=== PATIENT | male | born 1945 | race Caucasian/White ===

== ENCOUNTER 2016-12-26 04:35 | Emergency (ER) | payer MEDICARE, OTHER ==
[2016-12-26] MEDS ORDERED: SODIUM CHLORIDE 0.9% 1,000 ML IV STA ×3 (04:49→06:57)
--- NOTE | 2016-12-26 05:17 | ED ---
Recheck HPI - General Chief Complaint: Recheck/Abnormal Lab/Rx Stated Complaint: Tremors Time Seen by Provider: 12/26/16 04:35 Source: patient, EMS, RN notes reviewed Mode of arrival: EMS Limitations: no limitations - History of Present Illness Initial Comments: This is a 71-year-old male with a history of Parkinson's disease who is brought in for evaluation for some increased shaking. He also states she's had increased muscle twitching is some discomfort over last several days. Also has had edema to his lower extremities no complaints of shortness of breath or does have a cough. - Related Data Home Medications Medication Instructions Recorded Confirmed Divalproex [Depakote] 250 mg PO BID 01/03/14 10/19/15 Tamsulosin HCl 0.4 mg PO BID 09/24/14 10/19/15 Primidone [Mysoline] 50 mg PO BID 12/06/14 10/19/15 Simvastatin [Zocor] 20 mg PO HS 12/06/14 10/19/15 Bisacodyl [Dulcolax] 10 mg RECTAL DAILY PRN 07/14/15 10/19/15 Cholecalciferol [Vitamin D3] 2,000 unit PO DAILY 07/14/15 10/19/15 Ensure Complete 1 can PO BID-W/MEALS 07/14/15 10/19/15 Magnesium Hydroxide [Milk of 30 ml PO DAILY PRN 07/14/15 10/19/15 Magnesia] Na Phos,M-B/Na Phos,Di-Ba [Fleet 133 ml RECTAL DAILY PRN 07/14/15 10/19/15 Adult] Polyethylene Glycol 3350 [Miralax] 17 gm PO BID 07/14/15 10/19/15 Psyllium Husk 100% [Metamucil 6 gm PO DAILY 07/14/15 10/19/15 Packet] Triamcinolone Acetonide [Nasacort] 1 spray EA NOSTRIL QAM 07/14/15 10/19/15 hydrOXYzine PAMOATE [Vistaril] 50 mg PO HS 07/14/15 10/19/15 Amantadine HCl [Symmetrel] 100 mg PO BID 10/19/15 10/19/15 Ammonium Lactate Lotion 1 applic TOPICAL DAILY 10/19/15 10/19/15 [Lac-Hydrin 12% Lotion] Carbidopa-Levodopa 25-100 mg 1 tab PO QID 10/19/15 10/19/15 [Sinemet 25-100 mg] Menthol/Zinc Oxide [Calmoseptine 1 applic TOPICAL TID 10/19/15 10/19/15 Ointment] Multivitamin [Men's Multi-Vitamin] 1 tab PO DAILY 10/19/15 10/19/15 QUEtiapine [SEROquel] 150 mg PO HS 10/19/15 10/19/15 Previous Rx's Medication Instructions Recorded Aspirin 81 mg PO DAILY chew 10/24/15 HYDROcodone/APAP 10-325MG [[place] 1 - 2 each PO Q6H PRN #90 tab 10/24/15 10-325] LORazepam [Ativan] 0.5 mg PO Q6H PRN #14 tab 10/24/15 Metoprolol Tartrate [Lopressor] 12.5 mg PO BID tab 10/24/15 Temazepam [Restoril] 15 mg PO HS PRN #14 cap 10/24/15 Warfarin [Coumadin] 2.5 mg PO DAILY #28 tab 10/24/15 Magnesium 200 mg PO DAILY #14 tablet 12/26/16 Allergies Allergy/AdvReac Type Severity Reaction Status Date / Time No Known Allergies Allergy Verified 12/26/16 04:38 Review of Systems ROS Statement: Those systems with pertinent positive or pertinent negative responses have been documented in the HPI. ROS Other: All systems not noted in ROS Statement are negative. Past Medical History Past Medical History: Coronary Artery Disease (CAD), CVA/TIA, Hyperlipidemia, Hypertension, Myocardial Infarction ([place]), Osteoarthritis (OA), Prostate Disorder , Seizure Disorder Additional Past Medical History / Comment(s): [place] 2009. PARKINSON'S, MUSCLE WEAKNESS. EPILEPSY. DYSPHAGIA. PATIENT ALERT, WALKS W/ WHEELED WALKER OR USES W/C. Last Myocardial Infarction Date:: 2009 History of Any Multi-Drug Resistant Organisms: None Reported Past Surgical History: Cholecystectomy, Heart Catheterization With Stent Additional Past Surgical History / Comment(s): RT INGUINAL HERNIA REPAIR Past Anesthesia/Blood Transfusion Reactions: No Reported Reaction Date of Last Stent Placement:: 2007 Past Psychological History: Anxiety, Bipolar Smoking Status: Former smoker Past Alcohol Use History: None Reported Past Drug Use History: None Reported - Past Family History Father Additional Family Medical History / Comment(s): BRIGHTS DISEASE Mother Family Medical History: CVA/TIA General Exam - General Exam Comments Initial Comments: This is a well-developed well-nourished awake alert male he does demonstrate generalized shaking consistent with Parkinson's disease Limitations: no limitations General appearance: alert, in no apparent distress Head exam: Present: atraumatic, normocephalic, normal inspection Eye exam: Present: normal appearance, PERRL, EOMI. Absent: scleral icterus, conjunctival injection, periorbital swelling ENT exam: Present: mucous membranes dry Neck exam: Present: normal inspection. Absent: tenderness, meningismus, lymphadenopathy Respiratory exam: Present: decreased breath sounds, other (Decreased Some Crackles [place] in the Left Base). Absent: respiratory distress, wheezes, rales , rhonchi, stridor Cardiovascular Exam: Present: regular rate, normal rhythm, normal heart sounds. Absent: systolic murmur, diastolic murmur, rubs, gallop, clicks GI/Abdominal exam: Present: soft, normal bowel sounds. Absent: distended, tenderness, guarding, rebound, rigid Extremities exam: Present: normal inspection, full ROM, normal capillary refill , pedal edema (Pila edema more so on the right than left lower extremity). Absent: tenderness, joint swelling, calf tenderness Back exam: Present: normal inspection Neurological exam: Present: alert, oriented X3, CN II-XII intact Psychiatric exam: Present: normal affect, normal mood Skin exam: Present: warm, dry, intact, normal color. Absent: rash Course Vital Signs 12/26/16 12/26/16 04:38 06:25 Temperature 98.1 F 98.7 F Pulse Rate 74 94 Respiratory 16 16 Rate Blood Pressure 143/64 125/67 O2 Sat by Pulse 97 97 Oximetry Medical Decision Making - Medical Decision Making The patient is feeling improved he will be hydrated with IV magnesium given additionally. History has improved greatly. He will be discharged after the IV medication - Lab Data Result diagrams: 12/26/16 05:30 12/26/16 05:30 Lab Results 12/26/16 12/26/16 12/26/16 Range/Units 05:30 05:30 05:30 WBC 6.2 (3.8-10.6) k/uL RBC 3.94 L (4.30-5.90) m/uL Hgb 12.9 L (13.0-17.5) gm/dL Hct 38.4 L (39.0-53.0) % MCV 97.5 (80.0-100.0) fL MCH 32.9 (25.0-35.0) pg MCHC 33.7 (31.0-37.0) g/dL RDW 13.7 (11.5-15.5) % Plt Count 214 (150-450) k/uL Neutrophils % 74 % Lymphocytes % 16 % Monocytes % 6 % Eosinophils % 3 % Basophils % 0 % Neutrophils # 4.5 (1.3-7.7) k/uL Lymphocytes # 1.0 (1.0-4.8) k/uL Monocytes # 0.3 (0-1.0) k/uL Eosinophils # 0.2 (0-0.7) k/uL Basophils # 0.0 (0-0.2) k/uL Sodium (137-145) mmol/L Potassium (3.5-5.1) mmol/L Chloride (98-107) mmol/L Carbon Dioxide (22-30) mmol/L Anion Gap mmol/L BUN (9-20) mg/dL Creatinine (0.66-1.25) mg/dL Est GFR (MDRD) Af Amer (>60 ml/min/1.73 sqM) Est GFR (MDRD) Non-Af (>60 ml/min/1.73 sqM) Glucose (74-99) mg/dL Calcium (8.4-10.2) mg/dL Magnesium (1.6-2.3) mg/dL Total Bilirubin (0.2-1.3) mg/dL AST (17-59) U/L ALT (21-72) U/L Alkaline Phosphatase (38-126) U/L Total Creatine Kinase 158 (55-170) U/L CK-MB (CK-2) 2.8 H* (0.0-2.4) ng/mL CK-MB (CK-2) Rel Index 1.8 NT-Pro-B Natriuret Pep 171 pg/mL Total Protein (6.3-8.2) g/dL Albumin (3.5-5.0) g/dL Urine Color Urine Appearance (Clear) Urine pH (5.0-8.0) Ur Specific [place] (1.001-1.035) Urine Protein (Negative) Urine Glucose (UA) (Negative) Urine Ketones (Negative) Urine Blood (Negative) Urine Nitrite (Negative) Urine Bilirubin (Negative) Urine Urobilinogen (<2.0) mg/dL Ur Leukocyte Esterase (Negative) 12/26/16 12/26/16 Range/Units 05:30 05:30 WBC (3.8-10.6) k/uL RBC (4.30-5.90) m/uL Hgb (13.0-17.5) gm/dL Hct (39.0-53.0) % MCV (80.0-100.0) fL MCH (25.0-35.0) pg MCHC (31.0-37.0) g/dL RDW (11.5-15.5) % Plt Count (150-450) k/uL Neutrophils % % Lymphocytes % % Monocytes % % Eosinophils % % Basophils % % Neutrophils # (1.3-7.7) k/uL Lymphocytes # (1.0-4.8) k/uL Monocytes # (0-1.0) k/uL Eosinophils # (0-0.7) k/uL Basophils # (0-0.2) k/uL Sodium 142 (137-145) mmol/L Potassium 4.2 (3.5-5.1) mmol/L Chloride 102 (98-107) mmol/L Carbon Dioxide 31 H (22-30) mmol/L Anion Gap 9 mmol/L BUN 40 H (9-20) mg/dL Creatinine 0.84 (0.66-1.25) mg/dL Est GFR (MDRD) Af Amer >60 (>60 ml/min/1.73 sqM) Est GFR (MDRD) Non-Af >60 (>60 ml/min/1.73 sqM) Glucose 88 (74-99) mg/dL Calcium 9.1 (8.4-10.2) mg/dL Magnesium 1.7 (1.6-2.3) mg/dL Total Bilirubin 0.9 (0.2-1.3) mg/dL AST 30 (17-59) U/L ALT 25 (21-72) U/L Alkaline Phosphatase 73 (38-126) U/L Total Creatine Kinase (55-170) U/L CK-MB (CK-2) (0.0-2.4) ng/mL CK-MB (CK-2) Rel Index NT-Pro-B Natriuret Pep pg/mL Total Protein 6.7 (6.3-8.2) g/dL Albumin 3.9 (3.5-5.0) g/dL Urine Color Yellow Urine Appearance Clear (Clear) Urine pH 7.0 (5.0-8.0) Ur Specific [place] 1.023 (1.001-1.035) Urine Protein Trace H (Negative) Urine Glucose (UA) Negative (Negative) Urine Ketones Trace H (Negative) Urine Blood Negative (Negative) Urine Nitrite Negative (Negative) Urine Bilirubin Negative (Negative) Urine Urobilinogen 2.0 (<2.0) mg/dL Ur Leukocyte Esterase Negative (Negative) - Radiology Data Radiology results: report reviewed (I did review the imaging and reports no acute findings.), image reviewed Disposition Clinical Impression: Dehydration, Hypomagnesemia, Tremor Disposition: HOME SELF-CARE Condition: Good Instructions: Dehydration (ED), Hypomagnesemia (ED) Prescriptions: Magnesium 200 mg PO DAILY #14 tablet Referrals: Taco Soto MD [Primary Care Provider] - 1-2 days
[2016-12-26 05:48] LABS: Appearance,Urine Clear (Clear); Basophils % (A) 0 %; Bilirubin,Urine Negative (Negative); Eosinophils # (A) 0.2 k/uL (0-0.7); Eosinophils % (A) 3 %; Glucose,Urine (UA) Negative (Negative); HCT 38.4 % (39.0-53.0); HDW 2.44; HGB 12.9 gm/dL (13.0-17.5); Ketones,Urine Trace (Negative); Leukocyte Esterase,Urine Negative (Negative); Luc # (Auto) 0.06; Luc % (Auto) 1; Lymphocytes % (A) 16 %; MCH 32.9 pg (25.0-35.0); MCHC 33.7 g/dL (31.0-37.0); MCV 97.5 fL (80.0-100.0); Mean Platelet Volume 8.2; Monocytes # (A) 0.3 k/uL (0-1.0); Monocytes % (A) 6 %; Neutrophils # (A) 4.5 k/uL (1.3-7.7); Neutrophils % (A) 74 %; Nitrite,Urine Negative (Negative); Protein,Urine Trace (Negative); RBC 3.94 m/uL (4.30-5.90); RDW 13.7 % (11.5-15.5); Specific Gravity,Urine 1.023 (1.001-1.035); UA Billing (MACRO vs. MICRO) CHEM; WBC 6.2 k/uL (3.8-10.6)
[2016-12-26 06:01] LABS: ALT 25 U/L (21-72); AST 30 U/L (17-59); Alkaline Phosphatase 73 U/L (38-126); Anion Gap 9 mmol/L; Blood Urea Nitrogen 40 mg/dL (9-20); Calcium 9.1 mg/dL (8.4-10.2); Carbon Dioxide 31 mmol/L (22-30); Chloride 102 mmol/L (98-107); Glucose 88 mg/dL (74-99); Magnesium 1.7 mg/dL (1.6-2.3); Non-African American GFR(MDRD) >60 (>60 ml/min/1.73 sqM); Potassium 4.2 mmol/L (3.5-5.1); Sodium 142 mmol/L (137-145); Total Bilirubin 0.9 mg/dL (0.2-1.3); Total Protein 6.7 g/dL (6.3-8.2)
[2016-12-26] MEDS ORDERED: LORazepam 2 MG/ML SYRINGE IV STA (06:19)
[2016-12-26 06:26] VITALS: TEMP 98.7
[2016-12-26 06:35] LABS: Creatine Kinase MB 2.8 ng/mL (0.0-2.4)
[2016-12-26] MEDS ORDERED: MAGNESIUM SULFATE-D5W PMX 1 GM in DEXTROSE/WATER 1 100ML.BAG IVPB ONE (06:57)
--- NOTE | 2016-12-26 07:10 | XR ---
EXAM: XR Chest, 2 Views CLINICAL HISTORY: Cough. TECHNIQUE: Frontal and lateral views of the chest. COMPARISON: CXR dated 10/20/2015. FINDINGS: Lungs: No evidence of focal consolidation. No evidence of pulmonary edema. Pleural space: No pleural effusion. No pneumothorax. Heart: Cardiac silhouette size within normal limits. Mediastinum: Unremarkable. Bones/joints: Osseous degenerative changes. No evidence of acute fracture. IMPRESSION: No radiographic evidence of acute cardiopulmonary process.
[2016-12-26 08:34] VITALS: BP 117/75; PULSE 89; RESP 18
== END 2016-12-26 09:33 | disposition home or self-care (01) ==
LOC: EC 04:35
DX: E86.0 Dehydration (principal); E83.42 Hypomagnesemia; R25.1 Tremor, unspecified; M62.838 Other muscle spasm; I25.10 Atherosclerotic heart disease of native coronary artery without angina pectoris; E78.5 Hyperlipidemia, unspecified; I10 Essential (primary) hypertension; I25.2 Old myocardial infarction; M19.90 Unspecified osteoarthritis, unspecified site; N42.9 Disorder of prostate, unspecified; G40.909 Epilepsy, unspecified, not intractable, without status epilepticus; G20 Parkinson's disease; F31.9 Bipolar disorder, unspecified; F41.9 Anxiety disorder, unspecified; Z87.891 Personal history of nicotine dependence; Z79.899 Other long term (current) drug therapy
CPT/HCPCS: 36415; 83880; 80053; 82550; 82553; 83735; 85025; 81003; 87040; 71020; 99284; 51702; 96365; 96375; 96361 ×3; J2060; J3475

== ENCOUNTER 2016-12-28 13:30 | Emergency (ER) | payer MEDICARE, OTHER ==
--- NOTE | 2016-12-28 14:08 | ED ---
General Adult HPI - General Chief complaint: Recheck/Abnormal Lab/Rx Stated complaint: Catheter Removal Time Seen by Provider: 12/28/16 13:57 Source: patient, RN notes reviewed Mode of arrival: wheelchair Limitations: no limitations - History of Present Illness Initial comments: 71-year-old male present emergency from for Rivers catheter removal. Patient states he placed a few days ago when his emergency department course was supposed to have it removed on Tuesday but states he did not come until today. Patient states is draining well he has no point complaints. Denies any fevers or chills patient offers no other complaints. - Related Data Home Medications Medication Instructions Recorded Confirmed Divalproex [Depakote] 250 mg PO BID 01/03/14 12/26/16 Tamsulosin HCl 0.4 mg PO BID 09/24/14 12/26/16 Primidone [Mysoline] 50 mg PO BID 12/06/14 12/26/16 Simvastatin [Zocor] 20 mg PO HS 12/06/14 12/26/16 Bisacodyl [Dulcolax] 10 mg RECTAL DAILY PRN 07/14/15 12/26/16 Cholecalciferol [Vitamin D3] 2,000 unit PO DAILY 07/14/15 12/26/16 Ensure Complete 1 can PO BID-W/MEALS 07/14/15 12/26/16 Magnesium Hydroxide [Milk of 30 ml PO DAILY PRN 07/14/15 12/26/16 Magnesia] Na Phos,M-B/Na Phos,Di-Ba [Fleet 133 ml RECTAL DAILY PRN 07/14/15 12/26/16 Adult] Polyethylene Glycol 3350 [Miralax] 17 gm PO BID 07/14/15 12/26/16 Psyllium Husk 100% [Metamucil 6 gm PO DAILY 07/14/15 12/26/16 Packet] Triamcinolone Acetonide [Nasacort] 1 spray EA NOSTRIL QAM 07/14/15 12/26/16 hydrOXYzine PAMOATE [Vistaril] 50 mg PO HS 07/14/15 12/26/16 Amantadine HCl [Symmetrel] 100 mg PO BID 10/19/15 12/26/16 Ammonium Lactate Lotion 1 applic TOPICAL DAILY 10/19/15 12/26/16 [Lac-Hydrin 12% Lotion] Carbidopa-Levodopa 25-100 mg 1 tab PO QID 10/19/15 12/26/16 [Sinemet 25-100 mg] Menthol/Zinc Oxide [Calmoseptine 1 applic TOPICAL TID 10/19/15 12/26/16 Ointment] Multivitamin [Men's Multi-Vitamin] 1 tab PO DAILY 10/19/15 12/26/16 QUEtiapine [SEROquel] 150 mg PO HS 10/19/15 12/26/16 Previous Rx's Medication Instructions Recorded Aspirin 81 mg PO DAILY chew 10/24/15 HYDROcodone/APAP 10-325MG [[place] 1 - 2 each PO Q6H PRN #90 tab 10/24/15 10-325] LORazepam [Ativan] 0.5 mg PO Q6H PRN #14 tab 10/24/15 Metoprolol Tartrate [Lopressor] 12.5 mg PO BID tab 10/24/15 Temazepam [Restoril] 15 mg PO HS PRN #14 cap 10/24/15 Warfarin [Coumadin] 2.5 mg PO DAILY #28 tab 10/24/15 Magnesium 200 mg PO DAILY #14 tablet 12/26/16 Allergies Allergy/AdvReac Type Severity Reaction Status Date / Time No Known Allergies Allergy Verified 12/28/16 13:55 Review of Systems ROS Statement: Those systems with pertinent positive or pertinent negative responses have been documented in the HPI. ROS Other: All systems not noted in ROS Statement are negative. Past Medical History Past Medical History: Coronary Artery Disease (CAD), CVA/TIA, Hyperlipidemia, Hypertension, Myocardial Infarction ([place]), Osteoarthritis (OA), Prostate Disorder , Seizure Disorder Additional Past Medical History / Comment(s): [place] 2009. PARKINSON'S, MUSCLE WEAKNESS. EPILEPSY. DYSPHAGIA. PATIENT ALERT, WALKS W/ WHEELED WALKER OR USES W/C. Last Myocardial Infarction Date:: 2009 History of Any Multi-Drug Resistant Organisms: None Reported Past Surgical History: Cholecystectomy, Heart Catheterization With Stent Additional Past Surgical History / Comment(s): RT INGUINAL HERNIA REPAIR Past Anesthesia/Blood Transfusion Reactions: No Reported Reaction Date of Last Stent Placement:: 2007 Past Psychological History: Anxiety, Bipolar Smoking Status: Former smoker Past Alcohol Use History: None Reported Past Drug Use History: None Reported - Past Family History Father Additional Family Medical History / Comment(s): BRIGHTS DISEASE Mother Family Medical History: CVA/TIA General Exam Limitations: no limitations General appearance: alert, in no apparent distress Neck exam: Present: normal inspection. Absent: tenderness, meningismus, lymphadenopathy Respiratory exam: Present: normal lung sounds bilaterally. Absent: respiratory distress, wheezes, rales, rhonchi, stridor Cardiovascular Exam: Present: regular rate, normal rhythm, normal heart sounds. Absent: systolic murmur, diastolic murmur, rubs, gallop, clicks GI/Abdominal exam: Present: soft, normal bowel sounds. Absent: distended, tenderness, guarding, rebound, rigid Course Vital Signs 12/28/16 13:53 Temperature 97.1 F L Pulse Rate 66 Respiratory 18 Rate Blood Pressure 116/77 O2 Sat by Pulse 98 Oximetry Medical Decision Making - Medical Decision Making 71-year-old male presented for Rivers catheter removal. This was removed by the nurse. Patient tolerated well. We did discuss return parameters and possibility of urinary retention after Rivers catheter is removed. He does understand and return if he is unable to urinate. Disposition Clinical Impression: Encounter for Rivers catheter removal Disposition: HOME SELF-CARE Condition: Stable Instructions: Rivers Catheter Placement and Care (ED) Additional Instructions: Please return to the Emergency Department if symptoms worsen or any other concerns. Referrals: Taco Soto MD [Primary Care Provider] - 1-2 days Time of Disposition: 14:07
[2016-12-28 14:14] VITALS: BP 134/64; PULSE 61; RESP 16; TEMP 97.2
== END 2016-12-28 14:29 | disposition home or self-care (01) ==
LOC: EC 13:30
DX: Z43.8 Encounter for attention to other artificial openings (principal); I25.10 Atherosclerotic heart disease of native coronary artery without angina pectoris; E78.5 Hyperlipidemia, unspecified; I10 Essential (primary) hypertension; I25.2 Old myocardial infarction; G40.909 Epilepsy, unspecified, not intractable, without status epilepticus; M19.90 Unspecified osteoarthritis, unspecified site; F41.9 Anxiety disorder, unspecified; Z86.73 Personal history of transient ischemic attack (TIA), and cerebral infarction without residual deficits; Z79.899 Other long term (current) drug therapy; Z87.891 Personal history of nicotine dependence
CPT/HCPCS: 99283

== ENCOUNTER → 2016-12-28 | Outpatient (CLI) | payer MEDICARE, OTHER ==
--- NOTE | 2016-12-28 14:02 | US ---
EXAMINATION TYPE: US venous doppler duplex LE RT DATE OF EXAM: 12/28/2016 12:35 PM COMPARISON: NONE CLINICAL HISTORY: Rt Lower Ext, R22.41 swelling. Pt has urinary catheter permanent SIDE PERFORMED: rt TECHNIQUE: The lower extremity deep venous system is examined utilizing real time linear array sonog roland with graded compression, doppler sonography and color-flow sonography. VESSELS IMAGED: External Iliac Vein (EIV) Common Femoral Vein Deep Femoral Vein Greater Saphenous Vein * Femoral Vein Popliteal Vein Small Saphenous Vein * Proximal Calf Veins (* superficial vessels) Right Leg: Negative for acute DVT Grayscale, color doppler, spectral doppler imaging performed of the deep veins of the right lower ex tremity. There is normal flow, compressibility, vascular waveforms of the right lower extremity. IMPRESSION: No ultrasound evidence for acute DVT in the right lower extremity.
== END | disposition home or self-care (01) ==
LOC: RADUSWWP 12:12
PROVIDERS: ATTEND Internal Medicine
DX: R22.41 Localized swelling, mass and lump, right lower limb (principal)

== ENCOUNTER → 2016-12-28 | Outpatient (CLI) | payer MEDICARE, OTHER ==
[2016-12-28 13:40] LABS: Basophils % (A) 0 %; CH 33.1; CHCM 33.9; Eosinophils # (A) 0.2 k/uL (0-0.7); Eosinophils % (A) 4 %; HCT 36.8 % (39.0-53.0); HDW 2.45; Luc # (Auto) 0.07; Luc % (Auto) 2; Lymphocytes # (A) 0.9 k/uL (1.0-4.8); Lymphocytes % (A) 22 %; MCHC 32.6 g/dL (31.0-37.0); MCV 98.3 fL (80.0-100.0); Mean Platelet Volume 8.7; Monocytes # (A) 0.3 k/uL (0-1.0); Monocytes % (A) 7 %; Neutrophils # (A) 2.5 k/uL (1.3-7.7); Neutrophils % (A) 65 %; RBC 3.75 m/uL (4.30-5.90); RDW 13.4 % (11.5-15.5); WBC 3.8 k/uL (3.8-10.6)
[2016-12-28 14:01] LABS: ALT 12 U/L (21-72); AST 19 U/L (17-59); Alkaline Phosphatase 63 U/L (38-126); Anion Gap 8 mmol/L; Blood Urea Nitrogen 19 mg/dL (9-20); Calcium 8.6 mg/dL (8.4-10.2); Carbon Dioxide 31 mmol/L (22-30); Chloride 98 mmol/L (98-107); Cholesterol 155 mg/dL (<200); Glucose 85 mg/dL (74-99); HDL Cholesterol 44 mg/dL (40-60); Non-African American GFR(MDRD) >60 (>60 ml/min/1.73 sqM); Potassium 3.9 mmol/L (3.5-5.1); Sodium 137 mmol/L (137-145); Total Bilirubin 0.5 mg/dL (0.2-1.3); Total Protein 6.1 g/dL (6.3-8.2)
[2016-12-28 14:48] LABS: Hepatitis C Virus IgG Ab Negative (Negative); Hepatitis C Virus IgG Index 0.05
== END ==
LOC: LABWHC1 13:19
PROVIDERS: ATTEND Internal Medicine
DX: E55.9 Vitamin D deficiency, unspecified (principal); I25.9 Chronic ischemic heart disease, unspecified; Z13.9 Encounter for screening, unspecified
CPT/HCPCS: 36415; 80053; 80061; 82306; 85025; 86803

== ENCOUNTER 2016-12-30 20:08 | Observation (INO) | payer MEDICARE, OTHER ==
[2016-12-30 20:41] LABS: Basophils % (A) 0 %; CH 33.5; CHCM 35.2; Eosinophils # (A) 0.1 k/uL (0-0.7); Eosinophils % (A) 2 %; HCT 36.7 % (39.0-53.0); HGB 12.6 gm/dL (13.0-17.5); Luc # (Auto) 0.06; Luc % (Auto) 1; Lymphocytes # (A) 0.8 k/uL (1.0-4.8); Lymphocytes % (A) 17 %; MCH 32.9 pg (25.0-35.0); MCHC 34.4 g/dL (31.0-37.0); MCV 95.6 fL (80.0-100.0); Mean Platelet Volume 8.2; Monocytes # (A) 0.3 k/uL (0-1.0); Monocytes % (A) 6 %; Neutrophils # (A) 3.5 k/uL (1.3-7.7); Neutrophils % (A) 74 %; RBC 3.84 m/uL (4.30-5.90); RDW 13.8 % (11.5-15.5); WBC 4.8 k/uL (3.8-10.6); WBC (Perox) 5.24
[2016-12-30 20:50] LABS: ALT 18 U/L (21-72); AST 20 U/L (17-59); Alkaline Phosphatase 65 U/L (38-126); Anion Gap 11 mmol/L; Blood Urea Nitrogen 14 mg/dL (9-20); Carbon Dioxide 28 mmol/L (22-30); Chloride 96 mmol/L (98-107); Glucose 81 mg/dL (74-99); Magnesium 1.5 mg/dL (1.6-2.3); Non-African American GFR(MDRD) >60 (>60 ml/min/1.73 sqM); Potassium 3.7 mmol/L (3.5-5.1); Sodium 135 mmol/L (137-145); Total Bilirubin 0.4 mg/dL (0.2-1.3); Total Protein 6.6 g/dL (6.3-8.2)
[2016-12-30 20:53] LABS: Partial Thromboplastin Time 22.4 sec (22.0-30.0); Prothrombin Time 10.3 sec (9.0-12.0)
--- NOTE | 2016-12-30 21:14 | XR ---
EXAMINATION TYPE: XR chest 1V portable DATE OF EXAM: 12/30/2016 COMPARISON: 12/26/2016 HISTORY: Weakness TECHNIQUE: Single frontal view of the chest is obtained. FINDINGS: There is no focal air space opacity, pleural effusion, or pneumothorax seen. The cardiac silhouette size is within normal limits. The osseous structures are intact. IMPRESSION: No acute process.
[2016-12-30 23:12] LABS: Amorphous Sediment,Urine Rare /hpf; Appearance,Urine Cloudy (Clear); Bacteria,Urine Occasional /hpf; Bilirubin,Urine Negative (Negative); Glucose,Urine (UA) Negative (Negative); Ketones,Urine Negative (Negative); Leukocyte Esterase,Urine Negative (Negative); Nitrite,Urine Negative (Negative); PH, Urine 7.5 (5.0-8.0); Particle Count 4229; Protein,Urine Negative (Negative); Specific Gravity,Urine 1.003 (1.001-1.035); Squamous Epithelial Cell,Urine <1 /hpf (0-4); UA Billing (MACRO vs. MICRO) MICRO; Urobilinogen,Urine <2.0 mg/dL (<2.0); WBC,Urine 1 /hpf (0-5)
[2016-12-31] MEDS ORDERED: LORazepam 1 MG TAB PO STA (00:58)
[2016-12-31] MEDS ORDERED: NALOXONE 0.4 MG/ML 1 ML VIAL IV PRN (00:59)
[2016-12-31] MEDS ORDERED: LACTULOSE 20 GM/30 ML CUP PO PRN (01:01)
[2016-12-31] MEDS: SODIUM CHLORIDE 0.9% 1,000 ML IV SCH (01:31)
--- NOTE | 2016-12-31 01:43 | ED ---
Weakness HPI - General Chief complaint: Weakness Stated complaint: weakness Time Seen by Provider: 12/30/16 20:10 Source: patient, EMS Mode of arrival: EMS - History of Present Illness Initial comments: This patient is a 71-year-old man brought in by EMS to be evaluated for generalized weakness. They were called to the patient's residence because he was not able to get up after using the commode. He had been seated and then was not able to support himself. The patient denies focal weakness. The weakness affecting both legs, and he is weak in general. Patient does have history of some difficulty with ambulation due to Parkinson's but this is been much worse. Patient denies fever or chills, chest, back, or abdominal pain, dyspnea, or any other symptoms. Patient lives with his and she states they 're not able to manage any further MD Complaint: generalized weakness -: days(s) Location: generalized Severity: moderate Consistency: constant Improves with: none Worsens with: none - Related Data Home Medications Medication Instructions Recorded Confirmed Divalproex [Depakote] 250 mg PO QAM 01/03/14 12/30/16 Tamsulosin HCl 0.4 mg PO BID 09/24/14 12/30/16 Polyethylene Glycol 3350 [Miralax] 17 gm PO BID 07/14/15 12/30/16 Amantadine HCl [Symmetrel] 100 mg PO BID 10/19/15 12/30/16 Carbidopa-Levodopa 25-100 mg 1 tab PO QID@06,10,14,18 10/19/15 12/30/16 [Sinemet 25-100 mg] Aspirin EC [Ecotrin] 325 mg PO DAILY 12/30/16 12/30/16 Atorvastatin Calcium [Lipitor] 10 mg PO DAILY 12/30/16 12/30/16 Carbidopa/Levodopa [Sinemet CR 1 tab PO Q4H 12/30/16 12/30/16 50-200 mg] Coconut Oil 1000mg 1 tab PO DAILY 12/30/16 12/30/16 Divalproex Sodium [Depakote] 500 mg PO HS 12/30/16 12/30/16 Docusate [Colace] 100 mg PO BID 12/30/16 12/30/16 Esomeprazole Magnesium [NexIUM] 40 mg PO AC-BID 12/30/16 12/30/16 HYDROcodone/APAP 5-325MG [[place] 1 tab PO Q6H PRN 12/30/16 12/30/16 5-325] Hydrochlorothiazide 25 mg PO DAILY 12/30/16 12/30/16 Lactulose 10 gm PO BID PRN 12/30/16 12/30/16 Mirtazapine [Remeron] 30 mg PO HS 12/30/16 12/30/16 QUEtiapine [SEROquel] 50 mg PO HS 12/30/16 12/30/16 QUEtiapine [SEROquel] 100 mg PO HS 12/30/16 12/30/16 Sennosides-Docusate Sodium 1 tab PO HS 12/30/16 12/30/16 [Senokot-S] Previous Rx's Medication Instructions Recorded LORazepam [Ativan] 0.5 mg PO Q6H PRN #14 tab 10/24/15 Metoprolol Tartrate [Lopressor] 12.5 mg PO BID tab 10/24/15 Allergies Allergy/AdvReac Type Severity Reaction Status Date / Time No Known Allergies Allergy Verified 12/28/16 13:55 Review of Systems ROS Statement: Those systems with pertinent positive or pertinent negative responses have been documented in the HPI. ROS Other: All systems not noted in ROS Statement are negative. Constitutional: Denies: fever, chills Respiratory: Denies: cough, dyspnea Cardiovascular: Denies: chest pain, syncope Gastrointestinal: Denies: abdominal pain, vomiting, diarrhea Musculoskeletal: Denies: back pain Neurological: Reports: weakness (Generalized). Denies: headache, numbness Past Medical History Past Medical History: Coronary Artery Disease (CAD), CVA/TIA, Hyperlipidemia, Hypertension, Myocardial Infarction (MD), Osteoarthritis (OA), Prostate Disorder , Seizure Disorder Additional Past Medical History / Comment(s): MD 2009. PARKINSON'S, MUSCLE WEAKNESS. EPILEPSY. DYSPHAGIA. PATIENT ALERT, WALKS W/ WHEELED WALKER OR USES W/C. Last Myocardial Infarction Date:: 2009 History of Any Multi-Drug Resistant Organisms: None Reported Past Surgical History: Cholecystectomy, Heart Catheterization With Stent Additional Past Surgical History / Comment(s): RT INGUINAL HERNIA REPAIR Past Anesthesia/Blood Transfusion Reactions: No Reported Reaction Date of Last Stent Placement:: 2007 Past Psychological History: Anxiety, Bipolar Smoking Status: Former smoker Past Alcohol Use History: None Reported Past Drug Use History: None Reported - Past Family History Father Additional Family Medical History / Comment(s): BRIGHTS DISEASE Mother Family Medical History: CVA/TIA General Exam General appearance: alert, in no apparent distress Head exam: Present: atraumatic, normocephalic Eye exam: Present: normal appearance. Absent: scleral icterus, conjunctival injection ENT exam: Present: mucous membranes dry Respiratory exam: Present: normal lung sounds bilaterally. Absent: respiratory distress, wheezes, rales, rhonchi, stridor Cardiovascular Exam: Present: regular rate, normal rhythm, normal heart sounds. Absent: systolic murmur, diastolic murmur, rubs, gallop GI/Abdominal exam: Present: soft. Absent: tenderness, guarding, rebound Extremities exam: Present: normal inspection, normal capillary refill. Absent: pedal edema, calf tenderness Back exam: Absent: CVA tenderness (R), CVA tenderness (L) Neurological exam: Present: alert, oriented X3, CN II-XII intact, other ( Patient has tremor and rigidity consistent with Parkinson's diagnosis). Absent : motor sensory deficit Skin exam: Present: warm, dry, intact, normal color. Absent: rash Course Vital Signs 12/30/16 12/30/16 12/30/16 20:11 20:26 21:14 Temperature 97.3 F L Pulse Rate 79 72 Respiratory 20 22 20 Rate Blood Pressure 124/57 142/67 O2 Sat by Pulse 96 94 L Oximetry 12/30/16 12/30/16 12/30/16 22:09 22:53 23:37 Temperature Pulse Rate 69 72 77 Respiratory 20 18 18 Rate Blood Pressure 129/76 125/72 122/70 O2 Sat by Pulse 97 97 96 Oximetry 12/31/16 01:22 Temperature Pulse Rate 83 Respiratory 20 Rate Blood Pressure 166/91 O2 Sat by Pulse 96 Oximetry EKG Findings - EKG Results: EKG: interpreted by ERMLesly, sinus rhythm (Rate 74 bpm), normal axis, normal QRS, normal ST/T - MD, Pacemaker, Normal: Myocardial infarction: septal MD (old age or indeterminate) Medical Decision Making - Lab Data Result diagrams: 12/30/16 20:17 12/30/16 20:17 Lab Results 12/30/16 12/30/16 12/30/16 Range/Units 20:17 20:17 20:17 WBC 4.8 (3.8-10.6) k/uL RBC 3.84 L (4.30-5.90) m/uL Hgb 12.6 L (13.0-17.5) gm/dL Hct 36.7 L (39.0-53.0) % MCV 95.6 (80.0-100.0) fL MCH 32.9 (25.0-35.0) pg MCHC 34.4 (31.0-37.0) g/dL RDW 13.8 (11.5-15.5) % Plt Count 199 (150-450) k/uL Neutrophils % 74 % Lymphocytes % 17 % Monocytes % 6 % Eosinophils % 2 % Basophils % 0 % Neutrophils # 3.5 (1.3-7.7) k/uL Lymphocytes # 0.8 L (1.0-4.8) k/uL Monocytes # 0.3 (0-1.0) k/uL Eosinophils # 0.1 (0-0.7) k/uL Basophils # 0.0 (0-0.2) k/uL PT 10.3 (9.0-12.0) sec INR 1.0 (<1.2) APTT 22.4 (22.0-30.0) sec Sodium 135 L (137-145) mmol/L Potassium 3.7 (3.5-5.1) mmol/L Chloride 96 L (98-107) mmol/L Carbon Dioxide 28 (22-30) mmol/L Anion Gap 11 mmol/L BUN 14 (9-20) mg/dL Creatinine 0.88 (0.66-1.25) mg/dL Est GFR (MDRD) Af Amer >60 (>60 ml/min/1.73 sqM) Est GFR (MDRD) Non-Af >60 (>60 ml/min/1.73 sqM) Glucose 81 (74-99) mg/dL Calcium 9.0 (8.4-10.2) mg/dL Magnesium 1.5 L (1.6-2.3) mg/dL Total Bilirubin 0.4 (0.2-1.3) mg/dL AST 20 (17-59) U/L ALT 18 L (21-72) U/L Alkaline Phosphatase 65 (38-126) U/L Troponin I (0.000-0.034) ng/mL Total Protein 6.6 (6.3-8.2) g/dL Albumin 3.9 (3.5-5.0) g/dL Urine Color Urine Appearance (Clear) Urine pH (5.0-8.0) Ur Specific Red Level (1.001-1.035) Urine Protein (Negative) Urine Glucose (UA) (Negative) Urine Ketones (Negative) Urine Blood (Negative) Urine Nitrite (Negative) Urine Bilirubin (Negative) Urine Urobilinogen (<2.0) mg/dL Ur Leukocyte Esterase (Negative) Urine WBC (0-5) /hpf Ur Squamous Epith Cells (0-4) /hpf Amorphous Sediment (None) /hpf Urine Bacteria (None) /hpf 12/30/16 12/30/16 Range/Units 20:17 22:58 WBC (3.8-10.6) k/uL RBC (4.30-5.90) m/uL Hgb (13.0-17.5) gm/dL Hct (39.0-53.0) % MCV (80.0-100.0) fL MCH (25.0-35.0) pg MCHC (31.0-37.0) g/dL RDW (11.5-15.5) % Plt Count (150-450) k/uL Neutrophils % % Lymphocytes % % Monocytes % % Eosinophils % % Basophils % % Neutrophils # (1.3-7.7) k/uL Lymphocytes # (1.0-4.8) k/uL Monocytes # (0-1.0) k/uL Eosinophils # (0-0.7) k/uL Basophils # (0-0.2) k/uL PT (9.0-12.0) sec INR (<1.2) APTT (22.0-30.0) sec Sodium (137-145) mmol/L Potassium (3.5-5.1) mmol/L Chloride (98-107) mmol/L Carbon Dioxide (22-30) mmol/L Anion Gap mmol/L BUN (9-20) mg/dL Creatinine (0.66-1.25) mg/dL Est GFR (MDRD) Af Amer (>60 ml/min/1.73 sqM) Est GFR (MDRD) Non-Af (>60 ml/min/1.73 sqM) Glucose (74-99) mg/dL Calcium (8.4-10.2) mg/dL Magnesium (1.6-2.3) mg/dL Total Bilirubin (0.2-1.3) mg/dL AST (17-59) U/L ALT (21-72) U/L Alkaline Phosphatase (38-126) U/L Troponin I <0.012 (0.000-0.034) ng/mL Total Protein (6.3-8.2) g/dL Albumin (3.5-5.0) g/dL Urine Color Colorless Urine Appearance Cloudy (Clear) Urine pH 7.5 (5.0-8.0) Ur Specific Red Level 1.003 (1.001-1.035) Urine Protein Negative (Negative) Urine Glucose (UA) Negative (Negative) Urine Ketones Negative (Negative) Urine Blood Negative (Negative) Urine Nitrite Negative (Negative) Urine Bilirubin Negative (Negative) Urine Urobilinogen <2.0 (<2.0) mg/dL Ur Leukocyte Esterase Negative (Negative) Urine WBC 1 (0-5) /hpf Ur Squamous Epith Cells <1 (0-4) /hpf Amorphous Sediment Rare H (None) /hpf Urine Bacteria Occasional H (None) /hpf Disposition Clinical Impression: Generalized weakness, Hypomagnesemia Disposition: ADMITTED IP TO THIS HOSP Condition: Fair
[2016-12-31] MEDS: ACETAMINOPHEN TAB 325 MG TAB PO PRN ×2 (04:01→18:21)
[2016-12-31] MEDS: CARBIDOPA-LEVODOPA ER 50-200MG 1 EACH TABLET.ER PO SCH ×5 (04:02→20:11)
[2016-12-31] MEDS: CARBIDOPA-LEVODOPA 25-100 MG 1 EACH TAB PO SCH ×4 (06:18→18:21)
[2016-12-31] MEDS: MAGNESIUM OXIDE 400 MG TAB PO SCH ×2 (08:25→20:11)
[2016-12-31] MEDS: DOCUSATE 100 MG CAP PO SCH ×2 (08:25→20:11)
[2016-12-31] MEDS: TAMSULOSIN 0.4 MG CAP.ER.24H PO SCH ×2 (08:26→20:22)
[2016-12-31] MEDS: ATORVASTATIN 10 MG TAB PO SCH (08:27)
[2016-12-31] MEDS: DIVALPROEX 250 MG TABLET.DR PO SCH (08:27)
[2016-12-31] MEDS: METOPROLOL TARTRATE 12.5 MG TAB PO SCH ×2 (08:27→20:22)
[2016-12-31] MEDS: PANTOPRAZOLE 40 MG TABLET PO SCH ×2 (08:27→16:48)
[2016-12-31] MEDS: ASPIRIN 325 MG TAB PO SCH (08:27)
[2016-12-31] MEDS ORDERED: AMANTADINE HCL 100 MG CAP PO SCH (09:00)
[2016-12-31] MEDS ORDERED: HYDROCHLOROTHIAZIDE 25 MG TAB PO SCH (09:00)
[2016-12-31] MEDS: POLYETHYLENE GLYCOL 3350 17 GM POWD.PACK PO SCH ×2 (10:45→20:14)
--- NOTE | 2016-12-31 12:15 | P.HPIM ---
History of Present Illness 71-year-old gentleman came to hospital with progressive generalized weakness has been going on for a few months.. Patient does have Parkinson's with continued resting tremor. Patient follows up with the movement disorder neurologist in the [facility]. Patient is presently on amantadine carbidopa and levodopa combination for that. Patient will definitely need placement. Patient denied any fever, chills, nausea vomiting dysuria. The only significant abnormality is hypomagnesemia which is being supplemented at this time. We'll also get neurology opinion regarding titration of parkinsonian medications. Review of Systems REVIEW OF SYSTEMS: CONSTITUTIONAL: No fever, no malaise, no fatigue. HEENT: No recent visual problems or hearing problems. Denied any sore throat. CARDIOVASCULAR: No chest pain, orthopnea, PND, no palpitations, no syncope. PULMONARY: No shortness of breath, no cough, no hemoptysis. GASTROINTESTINAL: No diarrhea, no nausea, no vomiting, no abdominal pain. Normoactive bowel sounds. NEUROLOGICAL: As mentioned in HPI patient does not have any focal weakness HEMATOLOGICAL: Denies any bleeding or petechiae. GENITOURINARY: Denies any burning micturition, frequency, or urgency. MUSCULOSKELETAL/RHEUMATOLOGICAL: Denies any joint pain, swelling, or any muscle pain. ENDOCRINE: Denies any polyuria or polydipsia. The rest of the 14-point review of systems is negative. Past Medical History Past Medical History: Coronary Artery Disease (CAD), CVA/TIA, Hyperlipidemia, Hypertension, Myocardial Infarction (UT), Osteoarthritis (OA), Prostate Disorder , Seizure Disorder Additional Past Medical History / Comment(s): [place] 2009. PARKINSON'S, MUSCLE WEAKNESS. EPILEPSY. DYSPHAGIA. PATIENT ALERT, WALKS W/ WHEELED WALKER OR USES W/C. Last Myocardial Infarction Date:: 2009 History of Any Multi-Drug Resistant Organisms: None Reported Past Surgical History: Cholecystectomy, Heart Catheterization With Stent Additional Past Surgical History / Comment(s): RT INGUINAL HERNIA REPAIR Past Anesthesia/Blood Transfusion Reactions: No Reported Reaction Date of Last Stent Placement:: 2007 Past Psychological History: Anxiety, Bipolar Smoking Status: Former smoker Past Alcohol Use History: None Reported Additional Past Alcohol Use History / Comment(s): QUIT SMOKING 1977, 1/-1 PPD, UNSURE OF LENGTH. Past Drug Use History: None Reported - Past Family History Father Additional Family Medical History / Comment(s): BRIGHTS DISEASE Mother Family Medical History: CVA/TIA Medications and Allergies Home Medications Medication Instructions Recorded Confirmed Type Divalproex [Depakote] 250 mg PO QAM 01/03/14 12/30/16 History Tamsulosin HCl 0.4 mg PO BID 09/24/14 12/30/16 History Polyethylene Glycol 3350 [Miralax] 17 gm PO BID 07/14/15 12/30/16 History Amantadine HCl [Symmetrel] 100 mg PO BID 10/19/15 12/30/16 History Carbidopa-Levodopa 25-100 mg 1 tab PO QID@,,,10/19/15 12/30/16 History [Sinemet 25-100 mg] Aspirin EC [Ecotrin] 325 mg PO DAILY 12/30/16 12/30/16 History Atorvastatin Calcium [Lipitor] 10 mg PO DAILY 12/30/16 12/30/16 History Carbidopa/Levodopa [Sinemet CR 1 tab PO Q4H 12/30/16 12/30/16 History 50-200 mg] Coconut Oil 1000mg 1 tab PO DAILY 12/30/16 12/30/16 History Divalproex Sodium [Depakote] 500 mg PO HS 12/30/16 12/30/16 History Docusate [Colace] 100 mg PO BID 12/30/16 12/30/16 History Esomeprazole Magnesium [NexIUM] 40 mg PO AC-BID 12/30/16 12/30/16 History HYDROcodone/APAP 5-325MG [[place] 1 tab PO Q6H PRN 12/30/16 12/30/16 History 5-325] Hydrochlorothiazide 25 mg PO DAILY 12/30/16 12/30/16 History Lactulose 10 gm PO BID PRN 12/30/16 12/30/16 History Mirtazapine [Remeron] 30 mg PO HS 12/30/16 12/30/16 History QUEtiapine [SEROquel] 50 mg PO HS 12/30/16 12/30/16 History QUEtiapine [SEROquel] 100 mg PO HS 12/30/16 12/30/16 History Sennosides-Docusate Sodium 1 tab PO HS 12/30/16 12/30/16 History [Senokot-S] Allergies Allergy/AdvReac Type Severity Reaction Status Date / Time No Known Allergies Allergy Verified 12/28/16 13:55 Physical Exam Vitals: Vital Signs Temp Pulse Pulse Resp BP BP Pulse Ox 12/31/16 07:00 97.4 F L 65 16 107/58 96 12/31/16 06:37 83 18 12/31/16 02:35 97.4 F L 83 18 136/65 95 12/31/16 01:39 97.4 F L 12/31/16 01:22 83 20 166/91 96 12/30/16 23:37 77 18 122/70 96 12/30/16 22:53 72 18 125/72 97 12/30/16 22:09 69 20 129/76 97 12/30/16 21:14 72 20 142/67 94 L 12/30/16 20:26 22 12/30/16 20:11 97.3 F L 79 20 124/57 96 Intake and Output 12/30/16 12/31/16 12/31/16 22:59 06:59 14:59 Intake Total 240 Output Total 800 Balance -560 Intake: Oral 240 Output: Urine 800 Other: Voiding Method Diaper Diaper Weight 68.039 kg PHYSICAL EXAMINATION: GENERAL: The patient is alert and oriented x3, not in any acute distress. Well developed, well nourished. He does have a resting parkinsonian tremor significant gait abnormality patient does have expressionless face consistent with Parkinson's HEENT: Pupils are round and equally reacting to light. EOMI. No scleral icterus. No conjunctival pallor. Normocephalic, atraumatic. No pharyngeal erythema. No thyromegaly. CARDIOVASCULAR: S1 and S2 present. No murmurs, rubs, or gallops. PULMONARY: Chest is clear to auscultation, no wheezing or crackles. ABDOMEN: Soft, nontender, nondistended, normoactive bowel sounds. No palpable organomegaly. MUSCULOSKELETAL: No joint swelling or deformity. EXTREMITIES: No cyanosis, clubbing, or pedal edema. NEUROLOGICAL: Gross neurological examination did not reveal any focal deficits. SKIN: No rashes. Results CBC & Chem 7: 12/30/16 20:17 12/30/16 20:17 Labs: Abnormal Lab Results - Last 24 Hours (Table) 12/30/16 12/30/16 12/30/16 Range/Units 20:17 20:17 22:58 RBC 3.84 L (4.30-5.90) m/uL Hgb 12.6 L (13.0-17.5) gm/dL Hct 36.7 L (39.0-53.0) % Lymphocytes # 0.8 L (1.0-4.8) k/uL Sodium 135 L (137-145) mmol/L Chloride 96 L (98-107) mmol/L Magnesium 1.5 L (1.6-2.3) mg/dL ALT 18 L (21-72) U/L Amorphous Sediment Rare H (None) /hpf Urine Bacteria Occasional H (None) /hpf Thrombosis Risk Factor Assmnt - Choose All That Apply Any of the Below Risk Factors Present?: No Other Risk Factors: Yes Each Risk Factor Represents 2 Points: Age 61-74 years Thrombosis Risk Factor Assessment Total Risk Factor Score: 2 Thrombosis Risk Factor Assessment Level: Low Risk Assessment and Plan Plan: #1 generalized weakness and worsening weakness: Secondary to worsening Parkinson. Patient is a 2 person assist and patient will need to be discharged to subacute rehabilitation. #2 hypomagnesemia: Magnesium will be supplemented. #3 Parkinson's with continued baseline symptoms: Consult urology, continue with amantadine and carbidopa levodopa at present dosing. She #4 coronary artery disease and history of mitral infarction in the past. #5 several vascular accident in the past. #6 benign prostatic hypertrophy #7 seizure disorder For above-mentioned chronic medical problems patient will be continued on home medications and we will monitor closely.
[2016-12-31] MEDS: MAGNESIUM SULFATE-D5W PMX 1 GM in DEXTROSE/WATER 1 100ML.BAG IVPB SCH ×2 (12:38→16:47)
--- NOTE | 2016-12-31 15:29 | US ---
EXAMINATION TYPE: US venous doppler duplex LE RT DATE OF EXAM: 12/31/2016 1:52 PM COMPARISON: US 2017 CLINICAL HISTORY: r/o DVT. Right leg pain/swelling SIDE PERFORMED: Right TECHNIQUE: The lower extremity deep venous system is examined utilizing real time linear array sonog roland with graded compression, doppler sonography and color-flow sonography. VESSELS IMAGED: External Iliac Vein (EIV) Common Femoral Vein Deep Femoral Vein Greater Saphenous Vein * Femoral Vein Popliteal Vein Small Saphenous Vein * Proximal Calf Veins (* superficial vessels) Right Leg: Negative for DVT IMPRESSION: Grayscale, color doppler, spectral doppler imaging performed of the deep veins of the lo wer extremities. There is normal flow, compressibility, vascular waveforms bilaterally. No evident deep venous thrombosis at or above the right knee.
--- NOTE | 2016-12-31 16:35 | P.CNNES ---
History of Present Illness Consult date: 12/31/16 Requesting physician: Berlin Kline Reason for Consult: Parkinson's History of Present Illness: Patient is a pleasant 71-year-old male who is being evaluated by the neurology service on 12/31/2016 per the request of Dr. Kline for Parkinson's. Patient states he follows his an outpatient with Dr. Nelson for his Parkinson' s. He also states he recently was referred to [facility] for further management of Parkinson's. Patient states he recently had his Sinemet increased per neurologist at [facility]. On admission, patient was afebrile with blood pressure 124/57. Labs include hemoglobin of 12.6, RBCs 3.84, WBCs 4.8, and platelets 199. Sodium was 135, potassium 3.7, chloride 96, and carbon dioxide 28. Magnesium was low at 1.5 and is currently being replaced. At the time of my evaluation, patient sitting up in the chair next to his bed and appears to be in no acute distress. Review of Systems REVIEW OF SYSTEMS: Otherwise unremarkable and noncontributory. Past Medical History Past Medical History: Coronary Artery Disease (CAD), CVA/TIA, Hyperlipidemia, Hypertension, Myocardial Infarction (UT), Osteoarthritis (OA), Prostate Disorder , Seizure Disorder Additional Past Medical History / Comment(s): [place] 2009. PARKINSON'S, MUSCLE WEAKNESS. EPILEPSY. DYSPHAGIA. PATIENT ALERT, WALKS W/ WHEELED WALKER OR USES W/C. Last Myocardial Infarction Date:: 2009 History of Any Multi-Drug Resistant Organisms: None Reported Past Surgical History: Cholecystectomy, Heart Catheterization With Stent Additional Past Surgical History / Comment(s): RT INGUINAL HERNIA REPAIR Past Anesthesia/Blood Transfusion Reactions: No Reported Reaction Date of Last Stent Placement:: 2007 Past Psychological History: Anxiety, Bipolar Smoking Status: Former smoker Past Alcohol Use History: None Reported Additional Past Alcohol Use History / Comment(s): QUIT SMOKING 1977, 1/-1 PPD, UNSURE OF LENGTH. Past Drug Use History: None Reported - Past Family History Father Additional Family Medical History / Comment(s): BRIGHTS DISEASE Mother Family Medical History: CVA/TIA Medications and Allergies Home Medications Medication Instructions Recorded Confirmed Type Divalproex [Depakote] 250 mg PO QAM 01/03/14 12/30/16 History Tamsulosin HCl 0.4 mg PO BID 09/24/14 12/30/16 History Polyethylene Glycol 3350 [Miralax] 17 gm PO BID 07/14/15 12/30/16 History Amantadine HCl [Symmetrel] 100 mg PO BID 10/19/15 12/30/16 History Carbidopa-Levodopa 25-100 mg 1 tab PO QID@06,10,14,18 10/19/15 12/30/16 History [Sinemet 25-100 mg] Aspirin EC [Ecotrin] 325 mg PO DAILY 12/30/16 12/30/16 History Atorvastatin Calcium [Lipitor] 10 mg PO DAILY 12/30/16 12/30/16 History Carbidopa/Levodopa [Sinemet CR 1 tab PO Q4H 12/30/16 12/30/16 History 50-200 mg] Coconut Oil 1000mg 1 tab PO DAILY 12/30/16 12/30/16 History Divalproex Sodium [Depakote] 500 mg PO HS 12/30/16 12/30/16 History Docusate [Colace] 100 mg PO BID 12/30/16 12/30/16 History Esomeprazole Magnesium [NexIUM] 40 mg PO AC-BID 12/30/16 12/30/16 History HYDROcodone/APAP 5-325MG [[place] 1 tab PO Q6H PRN 12/30/16 12/30/16 History 5-325] Hydrochlorothiazide 25 mg PO DAILY 12/30/16 12/30/16 History Lactulose 10 gm PO BID PRN 12/30/16 12/30/16 History Mirtazapine [Remeron] 30 mg PO HS 12/30/16 12/30/16 History QUEtiapine [SEROquel] 50 mg PO HS 12/30/16 12/30/16 History QUEtiapine [SEROquel] 100 mg PO HS 12/30/16 12/30/16 History Sennosides-Docusate Sodium 1 tab PO HS 12/30/16 12/30/16 History [Senokot-S] Allergies Allergy/AdvReac Type Severity Reaction Status Date / Time No Known Allergies Allergy Verified 12/28/16 13:55 Physical Examination - Vital Signs Vital Signs: Vital Signs Temp Pulse Pulse Resp BP BP Pulse Ox 12/31/16 15:00 97.2 F L 69 16 112/58 98 12/31/16 07:00 97.4 F L 65 16 107/58 96 12/31/16 06:37 83 18 12/31/16 02:35 97.4 F L 83 18 136/65 95 12/31/16 01:39 97.4 F L 12/31/16 01:22 83 20 166/91 96 12/30/16 23:37 77 18 122/70 96 12/30/16 22:53 72 18 125/72 97 12/30/16 22:09 69 20 129/76 97 12/30/16 21:14 72 20 142/67 94 L 12/30/16 20:26 22 12/30/16 20:11 97.3 F L 79 20 124/57 96 Intake and Output 12/31/16 12/31/16 12/31/16 06:59 14:59 22:59 Intake Total 240 210 Output Total 800 Balance -560 210 Intake: Intake, IV Titration 210 Amount Magnesium Sulfate-D5w Pmx 50 1 gm In Dextrose/Water 1 100ml.bag @ 100 mls/hr IVPB Q1H VALARIE Rx#: [id number] Sodium Chloride 0.9% 1, 160 000 ml @ 20 mls/hr IV . Q24H VALARIE Rx#:[id number] Oral 240 Output: Urine 800 Other: Voiding Method Diaper Diaper PHYSICAL EXAM: GENERAL APPEARANCE: Patient is a well-developed, male who appears to be in no acute distress. HEENT: Normocephalic, atraumatic, no facial asymmetry is seen. Neck is supple with no masses felt. CARDIOVASCULAR: Regular rate and rhythm. ABDOMEN: Nontender, nondistended. EXTREMITIES: Show no edema or clubbing. NEUROLOGICAL EXAM: Patient is awake, alert, and oriented 3. Language is normal and speech is mildly dysarthric most likely secondary to his Parkinson' s. Strength is full in all 4 extremities. Sensory exam to light touch is normal in all 4 extremities. Significant resting Parkinson tremors in the upper extremities. No seizure-like activity noted. Results - Laboratory Findings CBC and BMP: 12/30/16 20:17 12/30/16 20:17 Abnormal Lab Findings: Abnormal Labs 12/30/16 12/30/16 12/30/16 20:17 20:17 22:58 RBC 3.84 L Hgb 12.6 L Hct 36.7 L Lymphocytes # 0.8 L Sodium 135 L Chloride 96 L Magnesium 1.5 L ALT 18 L Amorphous Sediment Rare H Urine Bacteria Occasional H Assessment and Plan (1) Generalized weakness Status: Chronic (2) Hypomagnesemia Status: Acute (3) Acute urinary tract infection Status: Acute Plan: Recommendations: It appears patient generalized weakness is worse at this time. This is likely due to worsening Parkinson's. I would recommend continuing current Sinemet dosing but I will increase amantadine to 100 mg 3 times a day dosing. Patient's tremors interfere with activities of daily living and he may benefit from deep brain stimulator in the near future. This can be discussed as an outpatient. I recommend continuing physical therapy and occupational therapy. I do agree with inpatient rehab. His low magnesium is already being supplemented. Continue current Depakote for seizure disorder. Continue neurological checks. Continue seizure precautions. I will continue to follow with you on an as-needed basis. Feel free to call with any questions or concerns. Thank you for allowing me to participate in the care of your patient. Feel free to call with any questions or concerns. I performed an examination of the patient and discussed the management with the BUS GIRL. I have reviewed the BUS GIRL notes and agree with the findings and plan of care.
[2016-12-31] MEDS: DIVALPROEX 500 MG TABLET.DR PO SCH ×2 (20:11→22:24)
[2016-12-31] MEDS: MIRTAZAPINE 15 MG TAB PO SCH (20:12)
[2016-12-31] MEDS: SENNOSIDES-DOCUSATE SODIUM 1 EACH TAB PO SCH (20:17)
[2016-12-31] MEDS: QUEtiapine 100 MG TAB PO SCH (20:17)
[2016-12-31] MEDS: AMANTADINE HCL 100 MG CAP PO SCH (22:25)
[2017-01-01] MEDS: CARBIDOPA-LEVODOPA ER 50-200MG 1 EACH TABLET.ER PO SCH ×6 (01:28→20:00)
[2017-01-01] MEDS: SODIUM CHLORIDE 0.9% 1,000 ML IV SCH ×2 (03:09→17:20)
[2017-01-01] MEDS: HYDROcodone/APAP 5-325MG 1 EACH TAB PO PRN ×2 (04:11→14:05)
[2017-01-01] MEDS: CARBIDOPA-LEVODOPA 25-100 MG 1 EACH TAB PO SCH ×4 (06:17→17:19)
[2017-01-01] MEDS: PANTOPRAZOLE 40 MG TABLET PO SCH ×2 (07:55→17:19)
[2017-01-01] MEDS: AMANTADINE HCL 100 MG CAP PO SCH ×3 (07:56→21:24)
[2017-01-01] MEDS: ASPIRIN 325 MG TAB PO SCH (07:56)
[2017-01-01] MEDS: DIVALPROEX 250 MG TABLET.DR PO SCH (07:56)
[2017-01-01] MEDS: ATORVASTATIN 10 MG TAB PO SCH (07:56)
[2017-01-01] MEDS: DOCUSATE 100 MG CAP PO SCH ×2 (07:57→20:03)
[2017-01-01] MEDS: TAMSULOSIN 0.4 MG CAP.ER.24H PO SCH ×2 (07:57→20:06)
[2017-01-01] MEDS: POLYETHYLENE GLYCOL 3350 17 GM POWD.PACK PO SCH ×2 (07:57→20:06)
[2017-01-01] MEDS: MAGNESIUM OXIDE 400 MG TAB PO SCH ×2 (07:57→20:04)
[2017-01-01] MEDS: METOPROLOL TARTRATE 12.5 MG TAB PO SCH ×2 (07:58→20:05)
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
[2017-01-01] MEDS: LORazepam 0.5 MG TAB PO PRN (12:52)
[2017-01-01] MEDS: ACETAMINOPHEN TAB 325 MG TAB PO PRN ×2 (12:52→20:04)
[2017-01-01] MEDS: DIVALPROEX 500 MG TABLET.DR PO SCH (20:00)
[2017-01-01] MEDS: SENNOSIDES-DOCUSATE SODIUM 1 EACH TAB PO SCH (20:06)
[2017-01-01] MEDS: QUEtiapine 100 MG TAB PO SCH (20:06)
[2017-01-01] MEDS: MIRTAZAPINE 15 MG TAB PO SCH (20:06)
[2017-01-02] MEDS: CARBIDOPA-LEVODOPA ER 50-200MG 1 EACH TABLET.ER PO SCH ×6 (03:58→21:37)
[2017-01-02] MEDS: LORazepam 0.5 MG TAB PO PRN ×3 (04:02→17:31)
[2017-01-02] MEDS: CARBIDOPA-LEVODOPA 25-100 MG 1 EACH TAB PO SCH ×4 (06:05→17:32)
[2017-01-02] MEDS: TAMSULOSIN 0.4 MG CAP.ER.24H PO SCH ×2 (07:15→23:04)
[2017-01-02] MEDS: ASPIRIN 325 MG TAB PO SCH (07:15)
[2017-01-02] MEDS: POLYETHYLENE GLYCOL 3350 17 GM POWD.PACK PO SCH ×2 (07:15→21:37)
[2017-01-02] MEDS: METOPROLOL TARTRATE 12.5 MG TAB PO SCH ×2 (07:15→21:37)
[2017-01-02] MEDS: DIVALPROEX 250 MG TABLET.DR PO SCH (07:16)
[2017-01-02] MEDS: MAGNESIUM OXIDE 400 MG TAB PO SCH ×2 (07:16→21:37)
[2017-01-02] MEDS: AMANTADINE HCL 100 MG CAP PO SCH ×3 (07:16→21:38)
[2017-01-02] MEDS: DOCUSATE 100 MG CAP PO SCH ×2 (07:17→21:37)
[2017-01-02] MEDS: ATORVASTATIN 10 MG TAB PO SCH (07:17)
[2017-01-02] MEDS: PANTOPRAZOLE 40 MG TABLET PO SCH ×2 (07:17→16:25)
[2017-01-02] MEDS: ACETAMINOPHEN TAB 325 MG TAB PO PRN ×2 (09:38→16:29)
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
[2017-01-02] MEDS: DIVALPROEX 500 MG TABLET.DR PO SCH (21:36)
[2017-01-02] MEDS: MIRTAZAPINE 15 MG TAB PO SCH (21:37)
[2017-01-02] MEDS: QUEtiapine 100 MG TAB PO SCH (21:38)
[2017-01-02] MEDS: SENNOSIDES-DOCUSATE SODIUM 1 EACH TAB PO SCH (21:42)
[2017-01-02] MEDS: HYDROcodone/APAP 5-325MG 1 EACH TAB PO PRN (21:42)
[2017-01-03] MEDS: CARBIDOPA-LEVODOPA ER 50-200MG 1 EACH TABLET.ER PO SCH ×6 (00:57→20:33)
[2017-01-03] MEDS: LORazepam 0.5 MG TAB PO PRN ×3 (00:57→20:35)
[2017-01-03] MEDS: SODIUM CHLORIDE 0.9% 1,000 ML IV SCH (02:41)
[2017-01-03] MEDS: CARBIDOPA-LEVODOPA 25-100 MG 1 EACH TAB PO SCH ×4 (06:15→17:38)
[2017-01-03] MEDS: ASPIRIN 325 MG TAB PO SCH (09:10)
[2017-01-03] MEDS: PANTOPRAZOLE 40 MG TABLET PO SCH ×2 (09:11→17:39)
[2017-01-03] MEDS: METOPROLOL TARTRATE 12.5 MG TAB PO SCH ×2 (09:11→20:33)
[2017-01-03] MEDS: AMANTADINE HCL 100 MG CAP PO SCH ×3 (09:11→20:34)
[2017-01-03] MEDS: MAGNESIUM OXIDE 400 MG TAB PO SCH (09:12)
[2017-01-03] MEDS: DOCUSATE 100 MG CAP PO SCH ×2 (09:12→20:33)
[2017-01-03] MEDS: ATORVASTATIN 10 MG TAB PO SCH (09:12)
[2017-01-03] MEDS: TAMSULOSIN 0.4 MG CAP.ER.24H PO SCH ×2 (09:12→20:34)
[2017-01-03] MEDS: DIVALPROEX 250 MG TABLET.DR PO SCH (09:14)
[2017-01-03] MEDS: POLYETHYLENE GLYCOL 3350 17 GM POWD.PACK PO SCH ×2 (09:20→20:31)
[2017-01-03 11:15] VITALS: BMI 22.1
[2017-01-03] MEDS: HYDROcodone/APAP 5-325MG 1 EACH TAB PO PRN ×2 (12:45→20:35)
[2017-01-03] MEDS: DIVALPROEX 500 MG TABLET.DR PO SCH (19:39)
[2017-01-03] MEDS: QUEtiapine 100 MG TAB PO SCH (20:34)
[2017-01-03] MEDS: MIRTAZAPINE 15 MG TAB PO SCH (20:34)
[2017-01-03] MEDS: SENNOSIDES-DOCUSATE SODIUM 1 EACH TAB PO SCH (22:31)
[2017-01-03 22:50] VITALS: RESP 16
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
[2017-01-04] MEDS: MAGNESIUM OXIDE 400 MG TAB PO SCH ×2 (00:20→07:59)
[2017-01-04] MEDS: CARBIDOPA-LEVODOPA ER 50-200MG 1 EACH TABLET.ER PO SCH ×5 (00:20→15:40)
[2017-01-04] MEDS: SODIUM CHLORIDE 0.9% 1,000 ML IV SCH (04:01)
[2017-01-04] MEDS: CARBIDOPA-LEVODOPA 25-100 MG 1 EACH TAB PO SCH ×3 (05:58→13:34)
[2017-01-04] MEDS: LORazepam 0.5 MG TAB PO PRN ×2 (05:58→13:32)
[2017-01-04] MEDS: HYDROcodone/APAP 5-325MG 1 EACH TAB PO PRN ×2 (05:58→13:33)
[2017-01-04] MEDS: ASPIRIN 325 MG TAB PO SCH (07:59)
[2017-01-04] MEDS: AMANTADINE HCL 100 MG CAP PO SCH ×2 (07:59→15:40)
[2017-01-04] MEDS: TAMSULOSIN 0.4 MG CAP.ER.24H PO SCH (07:59)
[2017-01-04] MEDS: ATORVASTATIN 10 MG TAB PO SCH (07:59)
[2017-01-04] MEDS: PANTOPRAZOLE 40 MG TABLET PO SCH (07:59)
[2017-01-04] MEDS: DOCUSATE 100 MG CAP PO SCH (07:59)
[2017-01-04] MEDS: POLYETHYLENE GLYCOL 3350 17 GM POWD.PACK PO SCH (08:00)
[2017-01-04] MEDS: DIVALPROEX 250 MG TABLET.DR PO SCH (08:00)
[2017-01-04] MEDS: METOPROLOL TARTRATE 12.5 MG TAB PO SCH (08:01)
[2017-01-04 15:27] VITALS: BP 106/54; PULSE 67; TEMP 97.5
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
== END 2017-01-04 15:45 ==
LOC: EC 20:08 → INTOOBSV 12-31 00:59 → 5MS5E 12-31 00:59
PROVIDERS: ADMIT Internal Medicine; ATTEND Internal Medicine
DX: G20 Parkinson's disease (principal); E83.42 Hypomagnesemia; I25.10 Atherosclerotic heart disease of native coronary artery without angina pectoris; I25.2 Old myocardial infarction; Z86.73 Personal history of transient ischemic attack (TIA), and cerebral infarction without residual deficits; N40.0 Benign prostatic hyperplasia without lower urinary tract symptoms; G40.909 Epilepsy, unspecified, not intractable, without status epilepticus; N39.0 Urinary tract infection, site not specified; R13.10 Dysphagia, unspecified; E78.5 Hyperlipidemia, unspecified; I10 Essential (primary) hypertension; M19.90 Unspecified osteoarthritis, unspecified site; F31.9 Bipolar disorder, unspecified; Z79.899 Other long term (current) drug therapy; Z79.82 Long term (current) use of aspirin; Z95.5 Presence of coronary angioplasty implant and graft; Z87.891 Personal history of nicotine dependence; R51 Headache
CPT/HCPCS: 99285 ×2; 96365; 96366; 36415; 93005; 97116; 97162; 97166; 80053; 83735 ×2; 84484; 85025; 85610; 85730; 81001; 71010; 93971; G0378 ×5; J3475

== ENCOUNTER 2017-01-20 12:01 | Emergency (ER) | payer MEDICARE, OTHER ==
--- NOTE | 2017-01-20 12:06 | ED ---
General Adult HPI - General Stated complaint: Behavioral Problems Time Seen by Provider: 01/20/17 12:04 Source: RN notes reviewed, old records reviewed - History of Present Illness Initial comments: This is a 71-year-old male the ER for evaluation of possible seizure, patient is poor historian secondary to condition, her corrected and history is obtained from EMS and transferring paperwork. Patient was found in with his room disheveled, things is 7 aside and patient had likely seizure. At this time patient remains postictal - Related Data Home Medications Medication Instructions Recorded Confirmed Divalproex [Depakote] 250 mg PO DAILY@0900 01/03/01/20/17 Tamsulosin HCl 0.4 mg PO BID@09,209909/24/14 01/20/17 Carbidopa-Levodopa 25-100 mg 1 tab PO QID@06,,,10/19/15 01/20/17 [Sinemet 25-100 mg] Aspirin EC [Ecotrin] 325 mg PO DAILY@0912/30/16 01/20/17 Atorvastatin Calcium [Lipitor] 10 mg PO HS@209912/30/16 01/20/17 Carbidopa/Levodopa [Sinemet CR 1 tab PO Q4H 12/30/16 01/20/17 50-200 mg] Divalproex Sodium [Depakote] 500 mg PO HS@209912/30/16 01/20/17 Docusate [Colace] 100 mg PO BID@0900,1700 12/30/16 01/20/17 Esomeprazole Magnesium [NexIUM] 40 mg PO BID@0600,1700 12/30/16 01/20/17 Hydrochlorothiazide 25 mg PO DAILY@0900 12/30/16 01/20/17 Lactulose 10 gm PO BID PRN 12/30/16 01/20/17 Mirtazapine [Remeron] 30 mg PO HS@209912/30/16 01/20/17 QUEtiapine [SEROquel] 100 mg PO HS@209912/30/16 01/20/17 Sennosides-Docusate Sodium 1 tab PO HS@209912/30/16 01/20/17 [Senokot-S] Amantadine HCl [Symmetrel] 100 mg PO TID@0900,1300,2100 01/20/17 01/20/17 Lactose-Reduced Food [Ensure Plus] 1 can PO BID@1400,2000 01/20/17 01/20/17 Magnesium Oxide [Mag-Ox] 400 mg PO BID@0900,1700 01/20/17 01/20/17 Metoprolol Tartrate [Lopressor] 12.5 mg PO BID@0900,1700 01/20/17 01/20/17 Potassium Chloride ER [K-Dur 20] 20 meq PO DAILY@0900 01/20/17 01/20/17 Previous Rx's Medication Instructions Recorded Polyethylene Glycol 3350 [Miralax] 17 gm PO BID PRN #0 01/03/17 HYDROcodone/APAP 5-325MG [[place] 1 tab PO Q6H PRN #20 01/04/17 5-325] LORazepam [Ativan] 0.5 mg PO Q6H PRN #20 tab 01/04/17 Allergies Allergy/AdvReac Type Severity Reaction Status Date / Time No Known Allergies Allergy Verified 01/20/17 13:04 Review of Systems ROS Statement: Those systems with pertinent positive or pertinent negative responses have been documented in the HPI. ROS Other: All systems not noted in ROS Statement are negative. Past Medical History Past Medical History: Coronary Artery Disease (CAD), CVA/TIA, Hyperlipidemia, Hypertension, Myocardial Infarction ([place]), Osteoarthritis (OA), Prostate Disorder , Seizure Disorder Additional Past Medical History / Comment(s): [place] 2009. PARKINSON'S, MUSCLE WEAKNESS. EPILEPSY. DYSPHAGIA. PATIENT ALERT, WALKS W/ WHEELED WALKER OR USES W/C. Last Myocardial Infarction Date:: 2009 History of Any Multi-Drug Resistant Organisms: None Reported Past Surgical History: Cholecystectomy, Heart Catheterization With Stent Additional Past Surgical History / Comment(s): RT INGUINAL HERNIA REPAIR Past Anesthesia/Blood Transfusion Reactions: No Reported Reaction Date of Last Stent Placement:: 2007 Past Psychological History: Anxiety, Bipolar Smoking Status: Former smoker Past Alcohol Use History: None Reported Additional Past Alcohol Use History / Comment(s): QUIT SMOKING 1977, 1/-1 PPD, UNSURE OF LENGTH. Past Drug Use History: None Reported - Past Family History Father Additional Family Medical History / Comment(s): BRIGHTS DISEASE Mother Family Medical History: CVA/TIA General Exam Limitations: altered mental status General appearance: alert, in no apparent distress Head exam: Present: atraumatic, normocephalic, normal inspection Eye exam: Present: normal appearance, PERRL, EOMI. Absent: scleral icterus, conjunctival injection, periorbital swelling ENT exam: Present: normal exam, mucous membranes moist Neck exam: Present: normal inspection. Absent: tenderness, meningismus, lymphadenopathy Respiratory exam: Present: normal lung sounds bilaterally. Absent: respiratory distress, wheezes, rales, rhonchi, stridor Cardiovascular Exam: Present: regular rate, normal rhythm, normal heart sounds. Absent: systolic murmur, diastolic murmur, rubs, gallop, clicks GI/Abdominal exam: Present: soft, normal bowel sounds. Absent: distended, tenderness, guarding, rebound, rigid Extremities exam: Present: normal inspection, full ROM, normal capillary refill. Absent: tenderness, pedal edema, joint swelling, calf tenderness Back exam: Present: normal inspection Neurological exam: Present: alert, oriented X3, CN II-XII intact Psychiatric exam: Present: normal affect, normal mood Skin exam: Present: warm, dry, intact, normal color. Absent: rash Course Vital Signs 01/20/17 12:04 Temperature 98.7 F Pulse Rate 82 Respiratory 16 Rate Blood Pressure 130/78 O2 Sat by Pulse 95 Oximetry - Reevaluation(s) Reevaluation #1: 01/20/17 14:25 Patient is therapeutic seizure levels the patient is without seizure activity here in the emergency room EKG Findings - EKG Comments: EKG Findings:: EKG shows sinus rhythm at 69, pO2 20, QRS 06, QTC 372 Medical Decision Making - Medical Decision Making [employer] [facility] reevaluation. Patient was is here for evaluation of probable seizure. Patient had an unwitnessed seizure earlier today, this has returned to baseline, no silicate activity here in emergency room, and occasional is are therapeutic and patient will be discharged home - Lab Data Result diagrams: 01/20/17 13:13 01/20/17 13:13 Lab Results 01/20/17 01/20/17 01/20/17 Range/Units 13:13 13:13 13:13 WBC 4.7 (3.8-10.6) k/uL RBC 4.16 L (4.30-5.90) m/uL Hgb 13.8 (13.0-17.5) gm/dL Hct 38.4 L (39.0-53.0) % MCV 92.4 (80.0-100.0) fL MCH 33.2 (25.0-35.0) pg MCHC 35.9 (31.0-37.0) g/dL RDW 12.0 (11.5-15.5) % Plt Count 215 (150-450) k/uL Neutrophils % 70 % Lymphocytes % 15 % Monocytes % 10 % Eosinophils % 3 % Basophils % 0 % Neutrophils # 3.3 (1.3-7.7) k/uL Lymphocytes # 0.7 L (1.0-4.8) k/uL Monocytes # 0.5 (0-1.0) k/uL Eosinophils # 0.1 (0-0.7) k/uL Basophils # 0.0 (0-0.2) k/uL Sodium 127 L (137-145) mmol/L Potassium 3.8 (3.5-5.1) mmol/L Chloride 84 L (98-107) mmol/L Carbon Dioxide 30 (22-30) mmol/L Anion Gap 13 mmol/L BUN 30 H (9-20) mg/dL Creatinine 0.90 (0.66-1.25) mg/dL Est GFR (MDRD) Af Amer >60 (>60 ml/min/1.73 sqM) Est GFR (MDRD) Non-Af >60 (>60 ml/min/1.73 sqM) Glucose 89 (74-99) mg/dL Calcium 9.4 (8.4-10.2) mg/dL Phosphorus 3.7 (2.5-4.5) mg/dL Magnesium 1.7 (1.6-2.3) mg/dL Total Bilirubin 0.6 (0.2-1.3) mg/dL AST 25 (17-59) U/L ALT 22 (21-72) U/L Alkaline Phosphatase 101 (38-126) U/L Troponin I <0.012 (0.000-0.034) ng/mL Total Protein 6.8 (6.3-8.2) g/dL Albumin 4.2 (3.5-5.0) g/dL Salicylates <1.0 mg/dL Acetaminophen <10.0 ug/mL Phenytoin <3.0 ug/mL Valproic Acid 51.4 ug/mL Carbamazepine <3.0 ug/mL Serum Alcohol <10 mg/dL - Radiology Data Radiology results: report reviewed (CT brain, chest x-ray pelvis x-ray negative for injury), image reviewed Disposition Clinical Impression: Epileptic seizure Disposition: HOME SELF-CARE Condition: Good Instructions: Recurrent Seizures in Adults (ED) Referrals: Simone Kearns MD [Primary Care Provider] - 1-2 days
[2017-01-20 12:08] VITALS: TEMP 98.7
[2017-01-20] MEDS ORDERED: SODIUM CHLORIDE 0.9% 1,000 ML IV STA (12:16)
[2017-01-20 13:30] LABS: Basophils % (A) 0 %; CHCM 35.9; Eosinophils # (A) 0.1 k/uL (0-0.7); Eosinophils % (A) 3 %; HCT 38.4 % (39.0-53.0); HDW 2.41; HGB 13.8 gm/dL (13.0-17.5); Luc # (Auto) 0.09; Luc % (Auto) 2; Lymphocytes # (A) 0.7 k/uL (1.0-4.8); Lymphocytes % (A) 15 %; MCH 33.2 pg (25.0-35.0); MCHC 35.9 g/dL (31.0-37.0); MCV 92.4 fL (80.0-100.0); Mean Platelet Volume 7.7; Monocytes # (A) 0.5 k/uL (0-1.0); Monocytes % (A) 10 %; Neutrophils # (A) 3.3 k/uL (1.3-7.7); Neutrophils % (A) 70 %; RBC 4.16 m/uL (4.30-5.90); WBC 4.7 k/uL (3.8-10.6); WBC (Perox) 5.04
[2017-01-20 13:48] LABS: ALT 22 U/L (21-72); AST 25 U/L (17-59); Acetaminophen <10.0 ug/mL; Alcohol <10 mg/dL; Alkaline Phosphatase 101 U/L (38-126); Anion Gap 13 mmol/L; Blood Urea Nitrogen 30 mg/dL (9-20); Calcium 9.4 mg/dL (8.4-10.2); Carbamazepine (Tegretol) <3.0 ug/mL; Carbon Dioxide 30 mmol/L (22-30); Chloride 84 mmol/L (98-107); Glucose 89 mg/dL (74-99); Magnesium 1.7 mg/dL (1.6-2.3); Non-African American GFR(MDRD) >60 (>60 ml/min/1.73 sqM); Phosphorous 3.7 mg/dL (2.5-4.5); Potassium 3.8 mmol/L (3.5-5.1); Salicylate <1.0 mg/dL; Sodium 127 mmol/L (137-145); Total Bilirubin 0.6 mg/dL (0.2-1.3); Total Protein 6.8 g/dL (6.3-8.2)
--- NOTE | 2017-01-20 14:08 | CT ---
EXAMINATION TYPE: CT brain wo con DATE OF EXAM: 01/20/2017 COMPARISON: NONE HISTORY: Patient unresponsive at time of exam. Probable seizure activity. CT DLP: 823.8 mGycm. Automated Exposure Control for Dose Reduction was Utilized. TECHNIQUE: CT scan of the head is performed without contrast. FINDINGS: There is no acute intracranial hemorrhage or midline shift identified. There is diffuse v entricular and sulcal prominence consistent with diffuse age-related cerebral atrophy. There is low- attenuation in the periventricular white matter consistent with chronic small vessel ischemic change. The globes are intact and the visualized sinuses are clear. Atherosclerosis is seen of the intrac ranial vasculature. Mastoid air cells are hypoplastic. IMPRESSION: No acute intracranial hemorrhage or midline shift. There is diffuse age-related cerebra l atrophy and chronic small vessel ischemic change.
--- NOTE | 2017-01-20 14:16 | XR ---
EXAMINATION TYPE: XR pelvis AP view , ONE VIEW DATE OF EXAM ORDERED: 01/20/2017 HISTORY: Pain. COMPARISON: None. FINDINGS: There is a right hip hemiarthroplasty which is incompletely visualized. There is a round m etallic object projecting over the left iliac crest. No fracture is seen. There are degenerative kenyon ges in the lower lumbar spine. IMPRESSION: 1. NO ACUTE FRACTURE. 2. DEGENERATIVE CHANGE.
--- NOTE | 2017-01-20 14:17 | XR ---
EXAMINATION TYPE: XR chest 2V DATE OF EXAM: 01/20/2017 COMPARISON: 12/30/2016 TECHNIQUE: PA and lateral views submitted. HISTORY: Unresponsiveness FINDINGS: Subsegmental changes at both lung bases. No sizable pleural effusion or pneumothorax. Atherosclerotic change aorta. Arthropathy of the shoulders. Lateral view limited by positioning and demonstrates deg enerative change. IMPRESSION: 1. Basilar atelectasis favored over infiltrate. Correlate clinically.
[2017-01-20 14:39] LABS: Appearance,Urine Clear (Clear); Bilirubin,Urine Negative (Negative); Glucose,Urine (UA) Negative (Negative); Ketones,Urine 1+ (Negative); Leukocyte Esterase,Urine Trace (Negative); Mucus,Urine Rare /hpf; Nitrite,Urine Negative (Negative); Particle Count 7259; Protein,Urine Trace (Negative); Specific Gravity,Urine 1.021 (1.001-1.035); UA Billing (MACRO vs. MICRO) MICRO; WBC,Urine 6 /hpf (0-5)
[2017-01-20 15:51] VITALS: BP 156/79; PULSE 71; RESP 18
== END 2017-01-20 15:47 | disposition home or self-care (01) ==
LOC: EC 12:01
DX: G40.909 Epilepsy, unspecified, not intractable, without status epilepticus (principal); I25.10 Atherosclerotic heart disease of native coronary artery without angina pectoris; E78.5 Hyperlipidemia, unspecified; I10 Essential (primary) hypertension; I25.2 Old myocardial infarction; M19.90 Unspecified osteoarthritis, unspecified site; F31.9 Bipolar disorder, unspecified; G20 Parkinson's disease; Z87.891 Personal history of nicotine dependence; Z79.1 Long term (current) use of non-steroidal anti-inflammatories (NSAID); Z79.82 Long term (current) use of aspirin; Z79.899 Other long term (current) drug therapy
CPT/HCPCS: 36415; 70450; 71020; 72170; 80053; 80156; 80164; 80185; 80306; 80320; 81001; 83520; 83735; 84100; 84484; 85025; 99285

== ENCOUNTER 2017-01-22 08:46 | Inpatient (IN) | payer MEDICARE, OTHER ==
[2017-01-22] MEDS ORDERED: ACETAMINOPHEN IV (For NPO) 1,000 MG in EMPTY BAG 1 BAG IVPB STA (09:03)
[2017-01-22] MEDS ORDERED: IBUPROFEN IV 600 MG in SODIUM CHLORIDE 0.9% 250 ML IV STA (09:03)
[2017-01-22] MEDS: SODIUM CHLORIDE 0.9% 500 ML IV SCH ×3 (09:05→11:04)
--- NOTE | 2017-01-22 09:07 | ED ---
General Adult HPI - General Chief complaint: Altered Mental Status Stated complaint: lethargy/altered mental Time Seen by Provider: 01/22/17 08:50 Source: patient, EMS, RN notes reviewed Mode of arrival: EMS Limitations: altered mental status - History of Present Illness Initial comments: This is a 71-year-old male who presents to the emergency department from a senior living because altered mentally according to the staff. I received a call from Dr. Kearns wanted the patient admitted after a workup was done. Patient is unable to give any history. I was told that the patient a urinary tract infection and a fever. Patient normally is alert and oriented 4 and today he is alert and oriented 1 according to staff. No other history is available at this time there is no family with the patient and he is unable to give any history. - Related Data Home Medications Medication Instructions Recorded Confirmed Divalproex [Depakote] 250 mg PO DAILY@0900 01/03/14 01/20/17 Tamsulosin HCl 0.4 mg PO BID@09,209909/24/14 01/20/17 Carbidopa-Levodopa 25-100 mg 1 tab PO QID@,,,10/19/15 01/20/17 [Sinemet 25-100 mg] Aspirin EC [Ecotrin] 325 mg PO DAILY@89912/30/16 01/20/17 Atorvastatin Calcium [Lipitor] 10 mg PO HS@209912/30/16 01/20/17 Carbidopa/Levodopa [Sinemet CR 1 tab PO Q4H 12/30/16 01/20/17 50-200 mg] Divalproex Sodium [Depakote] 500 mg PO HS@209912/30/16 01/20/17 Docusate [Colace] 100 mg PO BID@0900,1700 12/30/16 01/20/17 Esomeprazole Magnesium [NexIUM] 40 mg PO BID@0600,1700 12/30/16 01/20/17 Hydrochlorothiazide 25 mg PO DAILY@0900 12/30/16 01/20/17 Lactulose 10 gm PO BID PRN 12/30/16 01/20/17 Mirtazapine [Remeron] 30 mg PO HS@209912/30/16 01/20/17 QUEtiapine [SEROquel] 100 mg PO HS@209912/30/16 01/20/17 Sennosides-Docusate Sodium 1 tab PO HS@209912/30/16 01/20/17 [Senokot-S] Amantadine HCl [Symmetrel] 100 mg PO TID@0900,1300,209901/20/17 01/20/17 Lactose-Reduced Food [Ensure Plus] 1 can PO BID@1400,2000 01/20/17 01/20/17 Magnesium Oxide [Mag-Ox] 400 mg PO BID@0900,1700 01/20/17 01/20/17 Metoprolol Tartrate [Lopressor] 12.5 mg PO BID@0900,1700 01/20/17 01/20/17 Potassium Chloride ER [K-Dur 20] 20 meq PO DAILY@0900 01/20/17 01/20/17 Previous Rx's Medication Instructions Recorded Polyethylene Glycol 3350 [Miralax] 17 gm PO BID PRN #0 01/03/17 HYDROcodone/APAP 5-325MG [[place] 1 tab PO Q6H PRN #20 01/04/17 5-325] LORazepam [Ativan] 0.5 mg PO Q6H PRN #20 tab 01/04/17 Allergies Allergy/AdvReac Type Severity Reaction Status Date / Time No Known Allergies Allergy Verified 01/22/17 11:12 Review of Systems ROS Statement: Those systems with pertinent positive or pertinent negative responses have been documented in the HPI. ROS Other: All systems not noted in ROS Statement are negative. Past Medical History Past Medical History: Coronary Artery Disease (CAD), CVA/TIA, Hyperlipidemia, Hypertension, Myocardial Infarction (HI), Osteoarthritis (OA), Prostate Disorder , Seizure Disorder Additional Past Medical History / Comment(s): HI 2009. PARKINSON'S, MUSCLE WEAKNESS. EPILEPSY. DYSPHAGIA. PATIENT ALERT, WALKS W/ WHEELED WALKER OR USES W/C. Last Myocardial Infarction Date:: 2009 History of Any Multi-Drug Resistant Organisms: None Reported Past Surgical History: Cholecystectomy, Heart Catheterization With Stent Additional Past Surgical History / Comment(s): RT INGUINAL HERNIA REPAIR Past Anesthesia/Blood Transfusion Reactions: No Reported Reaction Date of Last Stent Placement:: 2007 Past Psychological History: Anxiety, Bipolar Smoking Status: Former smoker Past Alcohol Use History: None Reported Past Drug Use History: None Reported - Past Family History Father Additional Family Medical History / Comment(s): BRIGHTS DISEASE Mother Family Medical History: CVA/TIA General Exam - General Exam Comments Initial Comments: GENERAL: Patient is well-developed and well-nourished. Patient is nontoxic and well- hydrated and is in moderate distress. ENT: Neck is soft and supple. No significant lymphadenopathy is noted. Oropharynx is clear. Moist mucous membranes. Neck has full range of motion without eliciting any pain. EYES: The sclera were anicteric and conjunctiva were pink and moist. Extraocular movements were intact and pupils were equal round and reactive to light. Eyelids were unremarkable. PULMONARY: She has rhonchi throughout CARDIOVASCULAR: She is tachycardic at 115 beats a minute ABDOMEN: Soft and nontender with normal bowel sounds. No palpable organomegaly was noted. There is no palpable pulsatile mass. SKIN: Skin is clear with no lesions or rashes and otherwise unremarkable. NEUROLOGIC: Patient is alert and oriented 1. Cranial nerves II through XII are grossly intact. Motor and sensory are also intact. Normal speech, volume and content. Symmetrical smile. MUSCULOSKELETAL: Normal extremities with adequate strength and full range of motion. No lower extremity swelling or edema. No calf tenderness. LYMPHATICS: No significant lymphadenopathy is noted PSYCHIATRIC: Unable to evaluate Limitations: altered mental status Course Vital Signs 01/22/17 01/22/17 01/22/17 08:53 09:07 09:26 Temperature 100.5 F H Pulse Rate 117 H 100 Respiratory 15 18 Rate Blood Pressure 135/77 142/68 O2 Sat by Pulse 96 100 Oximetry 01/22/17 01/22/17 10:40 11:12 Temperature 99.4 F 99.6 F Pulse Rate 85 88 Respiratory 18 20 Rate Blood Pressure 129/67 124/64 O2 Sat by Pulse 99 95 Oximetry Medical Decision Making - Medical Decision Making EKG shows sinus tachycardia 119 bpm ND interval 190 QRS is 94 QT interval 302 QTC is 424. Patient's EKG shows ST segment depression in the precordial leads V3 through V6 - Lab Data Result diagrams: 01/22/17 09:02 01/22/17 09:02 Lab Results 01/22/17 01/22/17 01/22/17 Range/Units 09:02 09: 09:02 WBC 24.8 H (3.8-10.6) k/uL RBC 4.51 (4.30-5.90) m/uL Hgb 16.0 (13.0-17.5) gm/dL Hct 42.8 (39.0-53.0) % MCV 95.1 (80.0-100.0) fL MCH 35.6 H (25.0-35.0) pg MCHC 37.4 H (31.0-37.0) g/dL RDW 13.2 (11.5-15.5) % Plt Count 284 (150-450) k/uL Neutrophils % 93 % Lymphocytes % 2 % Monocytes % 3 % Eosinophils % 1 % Basophils % 0 % Neutrophils # 23.0 H (1.3-7.7) k/uL Lymphocytes # 0.6 L (1.0-4.8) k/uL Monocytes # 0.8 (0-1.0) k/uL Eosinophils # 0.2 (0-0.7) k/uL Basophils # 0.1 (0-0.2) k/uL PT (9.0-12.0) sec INR (<1.2) APTT (22.0-30.0) sec Sodium 136 L (137-145) mmol/L Potassium 4.2 (3.5-5.1) mmol/L Chloride 93 L (98-107) mmol/L Carbon Dioxide 21 L (22-30) mmol/L Anion Gap 22 mmol/L BUN 45 H (9-20) mg/dL Creatinine 0.94 (0.66-1.25) mg/dL Est GFR (MDRD) Af Amer >60 (>60 ml/min/1.73 sqM) Est GFR (MDRD) Non-Af >60 (>60 ml/min/1.73 sqM) Glucose 93 (74-99) mg/dL Plasma Lactic Acid Giovanni (0.7-2.0) mmol/L Calcium 9.5 (8.4-10.2) mg/dL Magnesium 1.8 (1.6-2.3) mg/dL Total Bilirubin 1.1 (0.2-1.3) mg/dL AST 53 (17-59) U/L ALT 44 (21-72) U/L Alkaline Phosphatase 113 (38-126) U/L Total Creatine Kinase 906 H (55-170) U/L CK-MB (CK-2) 8.2 H* (0.0-2.4) ng/mL CK-MB (CK-2) Rel Index 0.9 Troponin I 0.016 (0.000-0.034) ng/mL Total Protein 7.6 (6.3-8.2) g/dL Albumin 4.7 (3.5-5.0) g/dL Urine Color Urine Appearance (Clear) Urine pH (5.0-8.0) Ur Specific Mitchell (1.001-1.035) Urine Protein (Negative) Urine Glucose (UA) (Negative) Urine Ketones (Negative) Urine Blood (Negative) Urine Nitrite (Negative) Urine Bilirubin (Negative) Urine Urobilinogen (<2.0) mg/dL Ur Leukocyte Esterase (Negative) Urine RBC (0-5) /hpf Urine WBC (0-5) /hpf Ur Squamous Epith Cells (0-4) /hpf Urine Bacteria (None) /hpf Hyaline Casts (0-2) /lpf Urine Mucus (None) /hpf 01/22/17 01/22/17 01/22/17 Range/Units 09:02 09:02 09:14 WBC (3.8-10.6) k/uL RBC (4.30-5.90) m/uL Hgb (13.0-17.5) gm/dL Hct (39.0-53.0) % MCV (80.0-100.0) fL MCH (25.0-35.0) pg MCHC (31.0-37.0) g/dL RDW (11.5-15.5) % Plt Count (150-450) k/uL Neutrophils % % Lymphocytes % % Monocytes % % Eosinophils % % Basophils % % Neutrophils # (1.3-7.7) k/uL Lymphocytes # (1.0-4.8) k/uL Monocytes # (0-1.0) k/uL Eosinophils # (0-0.7) k/uL Basophils # (0-0.2) k/uL PT 11.3 (9.0-12.0) sec INR 1.1 (<1.2) APTT 23.4 (22.0-30.0) sec Sodium (137-145) mmol/L Potassium (3.5-5.1) mmol/L Chloride (98-107) mmol/L Carbon Dioxide (22-30) mmol/L Anion Gap mmol/L BUN (9-20) mg/dL Creatinine (0.66-1.25) mg/dL Est GFR (MDRD) Af Amer (>60 ml/min/1.73 sqM) Est GFR (MDRD) Non-Af (>60 ml/min/1.73 sqM) Glucose (74-99) mg/dL Plasma Lactic Acid Giovanni 2.2 H* (0.7-2.0) mmol/L Calcium (8.4-10.2) mg/dL Magnesium (1.6-2.3) mg/dL Total Bilirubin (0.2-1.3) mg/dL AST (17-59) U/L ALT (21-72) U/L Alkaline Phosphatase (38-126) U/L Total Creatine Kinase (55-170) U/L CK-MB (CK-2) (0.0-2.4) ng/mL CK-MB (CK-2) Rel Index Troponin I (0.000-0.034) ng/mL Total Protein (6.3-8.2) g/dL Albumin (3.5-5.0) g/dL Urine Color Yellow Urine Appearance Cloudy (Clear) Urine pH 5.5 (5.0-8.0) Ur Specific Mitchell 1.019 (1.001-1.035) Urine Protein 1+ H (Negative) Urine Glucose (UA) Negative (Negative) Urine Ketones 4+ H (Negative) Urine Blood Large H (Negative) Urine Nitrite Negative (Negative) Urine Bilirubin Negative (Negative) Urine Urobilinogen 2.0 (<2.0) mg/dL Ur Leukocyte Esterase Large H (Negative) Urine RBC >182 H (0-5) /hpf Urine WBC 163 H (0-5) /hpf Ur Squamous Epith Cells <1 (0-4) /hpf Urine Bacteria Rare H (None) /hpf Hyaline Casts 4 H (0-2) /lpf Urine Mucus Occasional H (None) /hpf Critical Care Time Critical Care Time: Yes Total Critical Care Time: 35 Disposition Clinical Impression: Urinary tract infection, Sepsis, Pneumonia, Altered mental status Disposition: ADMITTED IP TO THIS [facility] Time of Disposition: 10:55
[2017-01-22 09:16] LABS: Basophils # (A) 0.1 k/uL (0-0.2); Basophils % (A) 0 %; CHCM 35.9; Eosinophils # (A) 0.2 k/uL (0-0.7); Eosinophils % (A) 1 %; HCT 42.8 % (39.0-53.0); HDW 2.39; Immature Gran Flag Slight; Luc # (Auto) 0.08; Luc % (Auto) 0; Lymphocytes # (A) 0.6 k/uL (1.0-4.8); Lymphocytes % (A) 2 %; MCH 35.6 pg (25.0-35.0); MCHC 37.4 g/dL (31.0-37.0); MCV 95.1 fL (80.0-100.0); Mean Platelet Volume 8.3; Monocytes # (A) 0.8 k/uL (0-1.0); Monocytes % (A) 3 %; Neutrophils % (A) 93 %; RBC 4.51 m/uL (4.30-5.90); RDW 13.2 % (11.5-15.5); WBC 24.8 k/uL (3.8-10.6); WBC (Perox) 24.32
[2017-01-22 09:26] LABS: ALT 44 U/L (21-72); AST 53 U/L (17-59); Alkaline Phosphatase 113 U/L (38-126); Anion Gap 22 mmol/L; Blood Urea Nitrogen 45 mg/dL (9-20); Calcium 9.5 mg/dL (8.4-10.2); Carbon Dioxide 21 mmol/L (22-30); Chloride 93 mmol/L (98-107); Glucose 93 mg/dL (74-99); Magnesium 1.8 mg/dL (1.6-2.3); Non-African American GFR(MDRD) >60 (>60 ml/min/1.73 sqM); Potassium 4.2 mmol/L (3.5-5.1); Sodium 136 mmol/L (137-145); Total Bilirubin 1.1 mg/dL (0.2-1.3); Total Protein 7.6 g/dL (6.3-8.2)
[2017-01-22 09:28] LABS: INR 1.1 (<1.2); Partial Thromboplastin Time 23.4 sec (22.0-30.0); Prothrombin Time 11.3 sec (9.0-12.0)
[2017-01-22 09:29] LABS: Appearance,Urine Cloudy (Clear); Bacteria,Urine Rare /hpf; Bilirubin,Urine Negative (Negative); Glucose,Urine (UA) Negative (Negative); Ketones,Urine 4+ (Negative); Leukocyte Esterase,Urine Large (Negative); Mucus,Urine Occasional /hpf; Nitrite,Urine Negative (Negative); PH, Urine 5.5 (5.0-8.0); Particle Count 18977; Protein,Urine 1+ (Negative); RBC,Urine >182 /hpf (0-5); Specific Gravity,Urine 1.019 (1.001-1.035); Squamous Epithelial Cell,Urine <1 /hpf (0-4); UA Billing (MACRO vs. MICRO) MICRO; WBC,Urine 163 /hpf (0-5)
[2017-01-22] MEDS ORDERED: LEVOFLOXACIN 750MG-D5W PMX 750 MG in DEXTROSE/WATER 1 150ML.BAG IVPB STA (10:01)
[2017-01-22 10:02] LABS: Troponin I 0.016 ng/mL (0.000-0.034)
[2017-01-22 10:04] LABS: Creatine Kinase MB 8.2 ng/mL (0.0-2.4)
--- NOTE | 2017-01-22 10:12 | XR ---
EXAMINATION TYPE: XR chest 2V DATE OF EXAM: 01/22/2017 COMPARISON: Chest x-ray January 20, 2017. HISTORY: Unresponsive and fever TECHNIQUE: Frontal and lateral views of the chest are obtained. FINDINGS: There is chronic parenchymal change with patchy right basilar opacity more prominent versu s prior. Left lung is clear. No large pleural effusion or pneumothorax is seen bilaterally. The card iac silhouette size is within normal limits. The osseous structures are demineralized. Cholecystect jovani clips are noted. IMPRESSION: Chronic changes with worsening right lower lobe infiltrate and/or atelectasis.
[2017-01-22] MEDS ORDERED: SODIUM CHLORIDE 0.9% 1,000 ML IV ONE (10:58)
[2017-01-22 12:27] LABS: Glucose,Whole Blood 133 mg/dL (75-99)
[2017-01-22 12:41] LABS: Glucose,Whole Blood 130 mg/dL (75-99)
[2017-01-22] MEDS ORDERED: NALOXONE 0.4 MG/ML 1 ML VIAL IV PRN (12:51)
[2017-01-22] MEDS: LORazepam 2 MG/ML SYRINGE IV PRN ×3 (12:58→22:59)
--- NOTE | 2017-01-22 13:23 | P.CNPUL ---
History of Present Illness Consult date: 01/22/17 Reason for consult: dyspnea History of present illness: I was asked to evaluate this patient on an emergency basis knowing that he was having difficulty breathing and he was quite hypoxic. The patient was also having a congested cough unable to bring, respiratory secretions and he was in significant respiratory distress. Upon my arrival, I see patient was unresponsive and he is having extensive resting tremors due to his underlying advanced parkinsonism. The patient was apparently in the hospital approximately 2 weeks ago. He is a [facility] who resides in the [facility]. The patient was admitted through the emergency department on 9 4 AM this morning with a diagnosis of urine checked infection. He had a significant abnormal UA and an underlying UTI and sepsis was suspected. No reported history of aspiration. I reviewed the chest x-ray from admission and there is a suspicion for a right basal pulmonary infiltrate. The patient has no Rivers catheter. He is wearing a diaper. He was struggling to breathe. Chest PT and the suctioning was done. He was placed on a Ventimask and he was transferred to the intensive care unit. My understanding is that he has a full CODE STATUS. He was placed on BiPAP. He may need also to be placed on sedation to tolerate BiPAP therapy. Neurologically, there is significant impairment of the cognitive functions due to his underlying Parkinson's disease. Please refer to the earlier neurology evaluations that were done on this patient. He does not have a PEG tube. Does not have any central catheters. No open wounds or sores at this point. No seizure activity has been noted. Review of Systems ROS unobtainable: due to mental status Past Medical History Past Medical History: Coronary Artery Disease (CAD), CVA/TIA, Hyperlipidemia, Hypertension, Myocardial Infarction (SC), Osteoarthritis (OA), Prostate Disorder , Seizure Disorder Additional Past Medical History / Comment(s): Parkinson's disease, with significant dementia, impairment of cognitive functions and ongoing movement disorder with extensive tremors, coronary artery disease, hypertension, hyperlipidemia, questionable history of seizure disorder, BPH, osteoarthritis, previous history of fall and subcapital fracture of the right hip, post right hip hemiarthroplasty, chronic dysphagia, difficulty with mobility impairment the patient is wheeled or moves around with help of a walker. Last Myocardial Infarction Date:: 2009 History of Any Multi-Drug Resistant Organisms: None Reported Past Surgical History: Cholecystectomy, Heart Catheterization With Stent Additional Past Surgical History / Comment(s): RT INGUINAL HERNIA REPAIR, right hip hemiarthroplasty for subcapital fracture Past Anesthesia/Blood Transfusion Reactions: No Reported Reaction Date of Last Stent Placement:: 2007 Past Psychological History: Anxiety, Bipolar Smoking Status: Former smoker Past Alcohol Use History: None Reported Past Drug Use History: None Reported - Past Family History Father Additional Family Medical History / Comment(s): BRIGHTS DISEASE Mother Family Medical History: CVA/TIA Medications and Allergies Home Medications Medication Instructions Recorded Confirmed Type Tamsulosin HCl 0.4 mg PO BID@0900,209909/24/14 01/22/17 History Carbidopa-Levodopa 25-100 mg 1 tab PO QID 10/19/15 01/22/17 History [Sinemet 25-100 mg] Aspirin EC [Ecotrin] 325 mg PO DAILY@0900 12/30/16 01/22/17 History Atorvastatin Calcium [Lipitor] 10 mg PO HS@209912/30/16 01/22/17 History Carbidopa/Levodopa [Sinemet CR 1 tab PO HS@209912/30/16 01/22/17 History 50-200 mg] Docusate [Colace] 100 mg PO BID@0900,1700 12/30/16 01/22/17 History Esomeprazole Magnesium [NexIUM] 40 mg PO BID@0600,1700 12/30/16 01/22/17 History Hydrochlorothiazide 25 mg PO DAILY@0900 12/30/16 01/22/17 History Lactulose 10 gm PO BID PRN 12/30/16 01/22/17 History Mirtazapine [Remeron] 30 mg PO HS@209912/30/16 01/22/17 History Sennosides-Docusate Sodium 1 tab PO HS@209912/30/16 01/22/17 History [Senokot-S] Polyethylene Glycol 3350 [Miralax] 17 gm PO BID PRN #0 01/03/17 01/22/17 Rx HYDROcodone/APAP 5-325MG [[place] 1 tab PO Q6H PRN #20 01/04/17 01/22/17 Rx 5-325] LORazepam [Ativan] 0.5 mg PO Q6H PRN #20 tab 01/04/17 01/22/17 Rx Amantadine HCl [Symmetrel] 100 mg PO BID@0900,1700 01/20/17 01/22/17 History Magnesium Oxide [Mag-Ox] 400 mg PO BID@0900,1700 01/20/17 01/22/17 History Metoprolol Tartrate [Lopressor] 12.5 mg PO BID@0900,1700 01/20/17 01/22/17 History Potassium Chloride ER [K-Dur 20] 20 meq PO DAILY@89901/20/17 01/22/17 History Divalproex ER [Depakote ER] 500 mg PO HS@209901/22/17 01/22/17 History Divalproex Sodium [Depakote ER] 250 mg PO DAILY@89901/22/17 01/22/17 History QUEtiapine [SEROquel] 12.5 mg PO BID PRN 01/22/17 01/22/17 History QUEtiapine [SEROquel] 25 mg PO HS@209901/22/17 01/22/17 History Allergies Allergy/AdvReac Type Severity Reaction Status Date / Time No Known Allergies Allergy Verified 01/22/17 11:12 Physical Exam Vitals: Vital Signs Temp Pulse Resp BP Pulse Ox 01/22/17 13:00 115 H 48 H 110/73 100 01/22/17 12:50 114 H 46 H 193/102 100 01/22/17 12:40 98.7 F 124 H 39 H 164/124 01/22/17 12:30 98.7 F 18 164/124 01/22/17 12:26 105 H 01/22/17 11:15 97.3 F L 01/22/17 11:12 99.6 F 88 20 124/64 95 01/22/17 10:40 99.4 F 85 18 129/67 99 01/22/17 09:26 100 18 142/68 100 01/22/17 09:07 135/77 01/22/17 08:53 100.5 F H 117 H 15 96 Intake and Output 01/21/17 01/22/17 01/22/17 22:59 06:59 14:59 Intake Total 50 Output Total 60 Balance -10 Intake: IV 50 Sodium Chloride 0.9% 1, 50 000 ml @ 50 mls/hr IV . Q20H ON LICENSE OF [facility] Rx#:[id number] Output: Urine 60 Other: Weight 62.6 kg Patient Weight 01/23/17 06:59 Weight 62.6 kg Patient is in considerable amount of respiratory distress. The patient is having noisy breathing and rhonchi most of it seems to be upper airway in nature and as such I suspect that he may have either aspirated or has developed a mucous plug. He looks quite debilitated, weak and malnourished. The patient has extensive resting tremors. He has significant body rigidity rates to his underlying parkinsonism. Temporal wasting. Significant loss in total body protein muscle mass. Neck is supple and there is no JVDs no goiter or neck masses. Mucous membranes are dry. No thrush. Lungs reveal diminished breath sounds bilaterally and scattered rhonchi heard throughout the lung his bilaterally. Heart sounds are tachycardic, positive S1-S2 and there is no significant murmurs appreciated.Abdominal exam revealed normal bowel sounds. The abdomen was soft, non-tender, and without masses, organomegaly, or appreciable enlargement of the abdominal aorta.Examination of the extremities revealed easily palpable radial, femoral and pedal pulses. There was no cyanosis , clubbing or edema. Neurologic exam the patient is rigid and has cogwheeling rigidity and along with resting tremors. He is moving all 4 extremities. Weak cough and gag. No facial asymmetry. Results - Laboratory Findings CBC and BMP: 01/22/17 09:01/22/17 09:02 PT/INR, D-dimer PT 11.3 sec (9.0-12.0) 01/22/17 09:02 INR 1.1 (<1.2) 01/22/17 09:02 Abnormal lab findings: Abnormal Labs 01/22/17 01/22/17 01/22/17 09:02 09:02 09:02 WBC 24.8 H MCH 35.6 H MCHC 37.4 H Neutrophils # 23.0 H Lymphocytes # 0.6 L Sodium 136 L Chloride 93 L Carbon Dioxide 21 L BUN 45 H POC Glucose (mg/dL) Plasma Lactic Acid Giovanni Total Creatine Kinase 906 H CK-MB (CK-2) 8.2 H* Urine Protein Urine Ketones Urine Blood Ur Leukocyte Esterase Urine RBC Urine WBC Urine Bacteria Hyaline Casts Urine Mucus 01/22/17 01/22/17 01/22/17 09:02 09:14 12:07 WBC MCH MCHC Neutrophils # Lymphocytes # Sodium Chloride Carbon Dioxide BUN POC Glucose (mg/dL) 133 H Plasma Lactic Acid Giovanni 2.2 H* Total Creatine Kinase CK-MB (CK-2) Urine Protein 1+ H Urine Ketones 4+ H Urine Blood Large H Ur Leukocyte Esterase Large H Urine RBC >182 H Urine WBC 163 H Urine Bacteria Rare H Hyaline Casts 4 H Urine Mucus Occasional H 01/22/17 12:39 WBC MCH MCHC Neutrophils # Lymphocytes # Sodium Chloride Carbon Dioxide BUN POC Glucose (mg/dL) 130 H Plasma Lactic Acid Giovanni Total Creatine Kinase CK-MB (CK-2) Urine Protein Urine Ketones Urine Blood Ur Leukocyte Esterase Urine RBC Urine WBC Urine Bacteria Hyaline Casts Urine Mucus - Diagnostic Findings Chest x-ray: image reviewed Assessment and Plan Plan: Assessment 1 acute respiratory distress/acute hypoxic respiratory failure. The acute decompensation is most likely due to aspiration or mucous plug. The patient has symptomatic developed a right lower lobe pulmonary infiltrate suggestive an underlying hospital-acquired [facility] acquired or aspiration acquired pneumonia. 2 acute hypoxic respiratory failure secondary to above 3 acute urine checked infection 4 sepsis secondary to above 5 advanced Parkinson disease with significant movement disorder, rigidity and impairment of the cognitive functions 6 malnutrition 7 marked impairment in the performance and functional status 8 penitentiary resident 9 coronary artery disease previous coronary artery stenting 10 questionable seizure disorder 11 BPH with previous history of urine checked infections Plan The patient will moved to the intensive care unit. A CODE STATUS needs to be steps as soon as possible. I'll be very hesitant to intubate this patient based on his advanced neurologic condition and neurologic deficits that are seen today on examination. In addition his performance and functional status is extremely poor. We'll put him on a BiPAP. He'll be started on a pressure of 10/5 cm of water. Cover this patient with a combination of Zosyn and Levaquin. Keep him nothing by mouth for now. Ativan for agitation. Unable to give him his oral medication for the time being and this will placed on hold. We'll put on heparin subcu for DVT prophylaxis. We'll put him on DuoNeb dressings [id number] 4 times a day. We'll continue to follow make further recommendations based on his progress. Condition is critical. I'll come is poor baseline above-mentioned comorbidities.
[2017-01-22] MEDS: SODIUM CHLORIDE 0.9% 1,000 ML IV SCH (15:25)
[2017-01-22] MEDS: LEVALBUTEROL NEB (CONC) 1.25 MG/0.5 ML AMP INHALATION SCH ×2 (16:02→20:07)
[2017-01-22] MEDS: IPRATROPIUM 0.5 MG/2.5 ML NEBU INHALATION SCH ×2 (16:02→20:07)
[2017-01-22] MEDS: HEPARIN SODIUM,PORCINE 5,000 UNIT/ML 1 ML VIAL SQ SCH (16:07)
[2017-01-22] MEDS: PIPERACILLIN-TAZOBACTAM 3.375 GM in DEXTROSE/WATER 1 50ML.BAG IVPB SCH (16:07)
[2017-01-22] MEDS ORDERED: LACTULOSE 20 GM/30 ML CUP PO PRN (16:33)
[2017-01-22] MEDS ORDERED: QUEtiapine 25 MG TAB PO PRN (16:33)
[2017-01-22] MEDS ORDERED: LORazepam 0.5 MG TAB PO PRN (16:33)
[2017-01-22] MEDS ORDERED: HYDROcodone/APAP 5-325MG 1 EACH TAB PO PRN (16:33)
[2017-01-22] MEDS ORDERED: POLYETHYLENE GLYCOL 3350 17 GM POWD.PACK PO PRN (16:33)
[2017-01-22] MEDS ORDERED: DOCUSATE ORAL SOLN 100 MG/10 ML CUP PO PRN (16:35)
[2017-01-22] MEDS: METOPROLOL TARTRATE 12.5 MG TAB PO SCH (17:39)
[2017-01-22] MEDS: AMANTADINE HCL 100 MG CAP PO SCH (17:40)
[2017-01-22] MEDS: CARBIDOPA-LEVODOPA 25-100 MG 1 EACH TAB PO SCH (17:40)
[2017-01-22] MEDS: MAGNESIUM OXIDE 400 MG TAB PO SCH (17:40)
[2017-01-22 18:42] LABS: Glucose,Whole Blood 124 mg/dL (75-99)
[2017-01-22] MEDS ORDERED: LORazepam 2 MG/ML SYRINGE IV STA (19:04)
[2017-01-22] MEDS: TAMSULOSIN 0.4 MG CAP.ER.24H PO SCH (20:13)
[2017-01-22] MEDS ORDERED: ATORVASTATIN 10 MG TAB PO SCH (21:00)
[2017-01-22] MEDS ORDERED: SENNOSIDES-DOCUSATE SODIUM 1 EACH TAB PO SCH (21:00)
[2017-01-22] MEDS ORDERED: MIRTAZAPINE 15 MG TAB PO SCH (21:00)
[2017-01-22] MEDS ORDERED: QUEtiapine 25 MG TAB PO SCH (21:00)
[2017-01-22] MEDS ORDERED: DIVALPROEX ER 500 MG TAB.ER.24H PO SCH (21:00)
[2017-01-22] MEDS ORDERED: CARBIDOPA-LEVODOPA ER 50-200MG 1 EACH TABLET.ER PO SCH (21:00)
--- NOTE | 2017-01-22 21:12 | P.HPIM ---
History of Present Illness H&P Date: 01/22/17 Chief Complaint: Short of breath History of presenting complaint: This is a 71-year-old patient was admitted as a resident of [facility]. From Dr. Kearns. Patient's chronic stable medical conditions include Parkinson's disease , coronary artery disease with stent, hypertension, hyperlipidemia, seizures, bipolar, osteoarthritis and dementia. Does use a walker at her baseline. Patient was sent in for some respiratory distress due to some suctioning was carried out because her pulse ox did drop the patient is put on a BiPAP and then he was moved to the ICU to the ICU patient's currently rather tired and unable to give much of history was obtained from the notes and the nurse. Review of systems cannot be done because of patient's altered mental status Past medical history: Parkinson's disease, coronary artery with stent, hypertension, hyperlipidemia, seizure disorder, bipolar, osteoarthritis, dementia, uses a walker Past surgical history: Cholecystectomy, cardiac cath with stent, right inguinal hernia repair, right hip hemiarthroplasty for subcapital fracture Social history: Ex-smoker. Currently a resident of [facility] Family history: Stroke VITAL SIGNS: 100.5, 117, 15, 96% nonrebreather is on admission GENERAL: Average built, laying in bed on a BiPAP tired appearing some perspiration. EYES: Pupils equal. Conjunctiva normal. HEENT: External appearance of nose and ears normal, oral cavity grossly normal. NECK: JVD not raised; masses not palpable. HEART: First and second heart sounds are normal; no edema. LUNGS: Respiratory rate increased, decreased breath sounds. ABDOMEN: Soft, nontender, liver spleen not palpable, no masses palpable. LYMPHATICS: No lymph nodes palpable in the axilla and neck. PSYCH: Lethargic but arousable on a BiPAPl. NEUROLOGICAL: Cranial nerves grossly intact; no facial asymmetry, power and sensation grossly intact. Investigations: White count 24.8, hemoglobin 16, potassium 4.2, BUN 45 creatinine, creatinine 0.94 Chest x-ray right lower lobe infiltrate Assessment: -Right lower lobe infiltrate suspected gram-negative organism causing sepsis- like picture and presentation -Acute delirium/metabolic encephalopathy from pneumonia present on admission -Idiopathic Parkinson's disease -Coronary artery disease with prior history of stent -Essential hypertension -Hyperlipidemia -Seizure disorder -Bipolar disorder -Primary osteoarthritis -Alzheimer's Alzheimer's dementia late onset type -Cor status is DO NOT RESUSCITATE Plan: Patient's in the ICU. He is on IV Levaquin and IV Zosyn. Spoke to the nurse that the ration them is lethargic but they have to give NG tube to give his medications also getting IV fluids. No family is at the bedside. [place] [employer] Dr. Herrera was consulted. Overall prognosis guarded. Past Medical History Past Medical History: Coronary Artery Disease (CAD), CVA/TIA, Hyperlipidemia, Hypertension, Myocardial Infarction (AL), Osteoarthritis (OA), Prostate Disorder , Seizure Disorder Additional Past Medical History / Comment(s): Parkinson's disease, with significant dementia, impairment of cognitive functions and ongoing movement disorder with extensive tremors, coronary artery disease, hypertension, hyperlipidemia, questionable history of seizure disorder, BPH, osteoarthritis, previous history of fall and subcapital fracture of the right hip, post right hip hemiarthroplasty, chronic dysphagia, difficulty with mobility impairment the patient is wheeled or moves around with help of a walker. Last Myocardial Infarction Date:: 2009 History of Any Multi-Drug Resistant Organisms: None Reported Past Surgical History: Cholecystectomy, Heart Catheterization With Stent Additional Past Surgical History / Comment(s): RT INGUINAL HERNIA REPAIR, right hip hemiarthroplasty for subcapital fracture Past Anesthesia/Blood Transfusion Reactions: No Reported Reaction Date of Last Stent Placement:: 2007 Past Psychological History: Anxiety, Bipolar Smoking Status: Former smoker Past Alcohol Use History: None Reported Past Drug Use History: None Reported - Past Family History Father History Unknown: Yes Additional Family Medical History / Comment(s): BRIGHTS DISEASE Mother Family Medical History: CVA/TIA Medications and Allergies Home Medications Medication Instructions Recorded Confirmed Type Tamsulosin HCl 0.4 mg PO BID@09,209909/24/14 01/22/17 History Carbidopa-Levodopa 25-100 mg 1 tab PO QID 10/19/15 01/22/17 History [Sinemet 25-100 mg] Aspirin EC [Ecotrin] 325 mg PO DAILY@89912/30/16 01/22/17 History Atorvastatin Calcium [Lipitor] 10 mg PO HS@209912/30/16 01/22/17 History Carbidopa/Levodopa [Sinemet CR 1 tab PO HS@209912/30/16 01/22/17 History 50-200 mg] Docusate [Colace] 100 mg PO BID@09,1700 12/30/16 01/22/17 History Esomeprazole Magnesium [NexIUM] 40 mg PO BID@0600,169912/30/16 01/22/17 History Hydrochlorothiazide 25 mg PO DAILY@0912/30/16 01/22/17 History Lactulose 10 gm PO BID PRN 12/30/16 01/22/17 History Mirtazapine [Remeron] 30 mg PO HS@209912/30/16 01/22/17 History Sennosides-Docusate Sodium 1 tab PO HS@209912/30/16 01/22/17 History [Senokot-S] Polyethylene Glycol 3350 [Miralax] 17 gm PO BID PRN #0 01/03/17 01/22/17 Rx HYDROcodone/APAP 5-325MG [[place] 1 tab PO Q6H PRN #20 01/04/17 01/22/17 Rx 5-325] LORazepam [Ativan] 0.5 mg PO Q6H PRN #20 tab 01/04/17 01/22/17 Rx Amantadine HCl [Symmetrel] 100 mg PO BID@0900,1700 01/20/17 01/22/17 History Magnesium Oxide [Mag-Ox] 400 mg PO BID@0900,169901/20/17 01/22/17 History Metoprolol Tartrate [Lopressor] 12.5 mg PO BID@0900,0 01/20/17 01/22/17 History Potassium Chloride ER [K-Dur 20] 20 meq PO DAILY@89901/20/17 01/22/17 History Divalproex ER [Depakote ER] 500 mg PO HS@209901/22/17 01/22/17 History Divalproex Sodium [Depakote ER] 250 mg PO DAILY@89901/22/17 01/22/17 History QUEtiapine [SEROquel] 12.5 mg PO BID PRN 01/22/17 01/22/17 History QUEtiapine [SEROquel] 25 mg PO HS@209901/22/17 01/22/17 History Allergies Allergy/AdvReac Type Severity Reaction Status Date / Time No Known Allergies Allergy Verified 01/22/17 11:12 Physical Exam Vitals: Date Results CBC & Chem 7: 01/22/17 09:02 01/22/17 09:02
[2017-01-23] MEDS ORDERED: ACETAMINOPHEN IV (For NPO) 1,000 MG in EMPTY BAG 1 BAG IVPB PRN (00:46)
[2017-01-23] MEDS: PIPERACILLIN-TAZOBACTAM 3.375 GM in DEXTROSE/WATER 1 50ML.BAG IVPB SCH ×2 (00:51→11:48)
[2017-01-23] MEDS: HEPARIN SODIUM,PORCINE 5,000 UNIT/ML 1 ML VIAL SQ SCH ×3 (00:51→16:23)
[2017-01-23 04:41] LABS: CH 32.1; CHCM 33.6; HCT 38.9 % (39.0-53.0); HGB 13.3 gm/dL (13.0-17.5); Immature Gran Flag Moderate; MCH 32.9 pg (25.0-35.0); MCHC 34.3 g/dL (31.0-37.0); MCV 95.9 fL (80.0-100.0); Mean Platelet Volume 7.7; RBC 4.05 m/uL (4.30-5.90); RDW 12.5 % (11.5-15.5); WBC 16.9 k/uL (3.8-10.6); WBC (Perox) 17.63
[2017-01-23 04:51] LABS: Anion Gap 15 mmol/L; Blood Urea Nitrogen 40 mg/dL (9-20); Calcium 8.9 mg/dL (8.4-10.2); Carbon Dioxide 22 mmol/L (22-30); Chloride 101 mmol/L (98-107); Glucose 156 mg/dL (74-99); Non-African American GFR(MDRD) >60 (>60 ml/min/1.73 sqM); Phosphorous 2.6 mg/dL (2.5-4.5); Sodium 138 mmol/L (137-145)
[2017-01-23] MEDS: LORazepam 2 MG/ML SYRINGE IV PRN ×2 (05:38→15:46)
[2017-01-23 05:50] LABS: Add Differential Manual Differential
[2017-01-23 05:51] LABS: Band Neutrophils % 6 %; Nucleated Red Blood Cells 0 /100 WBC (0-0); Total Cells Counted 200
[2017-01-23 05:52] LABS: Manual Review Performed
[2017-01-23 07:28] LABS: Glucose,Whole Blood 144 mg/dL (75-99)
[2017-01-23] MEDS ORDERED: PANTOPRAZOLE 40 MG TABLET PO SCH (07:30)
--- NOTE | 2017-01-23 07:42 | XR ---
EXAMINATION TYPE: XR chest 1V DATE OF EXAM: 01/23/2017 CLINICAL HISTORY: Difficulty breathing progress study. TECHNIQUE: Single AP portable upright view of the chest is obtained. COMPARISON: Chest x-ray from one day earlier and older studies. FINDINGS: There is new nasogastric tube projecting below left hemidiaphragm, side port is just above diaphragm, consider advancing. There is chronic parenchymal change with stable patchy right basilar atelectasis and/or infiltrate. L eft lung is clear. No large pleural effusion or pneumothorax is seen bilaterally. The cardiac silhoue tte size is within normal limits. The osseous structures are demineralized. IMPRESSION: Stable patchy right basilar atelectasis and/or infiltrate. No new infiltrate is seen. New nasogastric tube has side port above hemidiaphragm, consider advancing.
[2017-01-23] MEDS: IPRATROPIUM 0.5 MG/2.5 ML NEBU INHALATION SCH ×3 (07:48→15:58)
[2017-01-23] MEDS: LEVALBUTEROL NEB (CONC) 1.25 MG/0.5 ML AMP INHALATION SCH ×3 (07:48→15:58)
[2017-01-23] MEDS ORDERED: POTASSIUM CHLORIDE ER 20 MEQ TAB.ER PO SCH (09:00)
[2017-01-23] MEDS ORDERED: PANTOPRAZOLE 40 MG/10 ML VIAL IV SCH (09:00)
[2017-01-23] MEDS ORDERED: HYDROCHLOROTHIAZIDE 25 MG TAB PO SCH (09:00)
[2017-01-23] MEDS ORDERED: DIVALPROEX ER 250 MG TAB.ER.24H PO SCH (09:00)
--- NOTE | 2017-01-23 09:34 | P.PN ---
Subjective I was asked to evaluate this patient on an emergency basis knowing that he was having difficulty breathing and he was quite hypoxic. The patient was also having a congested cough unable to bring, respiratory secretions and he was in significant respiratory distress. Upon my arrival, I see patient was unresponsive and he is having extensive resting tremors due to his underlying advanced parkinsonism. The patient was apparently in the hospital approximately 2 weeks ago. He is a jail resident who resides in the [facility] on [facility]. The patient was admitted through the emergency department on 9 4 AM this morning with a diagnosis of urine checked infection. He had a significant abnormal UA and an underlying UTI and sepsis was suspected. No reported history of aspiration. I reviewed the chest x-ray from admission and there is a suspicion for a right basal pulmonary infiltrate. The patient has no Rivers catheter. He is wearing a diaper. He was struggling to breathe. Chest PT and the suctioning was done. He was placed on a Ventimask and he was transferred to the intensive care unit. My understanding is that he has a full CODE STATUS. He was placed on BiPAP. He may need also to be placed on sedation to tolerate BiPAP therapy. Neurologically, there is significant impairment of the cognitive functions due to his underlying Parkinson's disease. Please refer to the earlier neurology evaluations that were done on this patient. He does not have a PEG tube. Does not have any central catheters. No open wounds or sores at this point. No seizure activity has been noted. On 01/23/2017 the patient is being seen in follow-up in the intensive care unit. Overnight he was kept on a BiPAP pressure of 10/5 cm of water with an FiO2 of 40%. Breathing is more comfortable compared to yesterday. His pulse ox is 100% above-mentioned BiPAP settings. His chest x-rays clear and there is no development of any acute airspace disease consolidation or pneumonia. The patient is having low-grade fever on and off and the patient is on IV Zosyn. Suspect a urine checked infection. Urine cultures and blood cultures are negative thus far. His white cell count is down to Ozzy 0.9. The patient is on no pressors. Lactic acid level is also improved and is down to 1.8. Renal function is normal. The patient is receiving IV fluids in the form of the rate of 50 mL an hour. Neurologically, the patient I was told has been alert and oriented 1. He was quite agitated and restless yesterday and he had to be given Ativan in addition to his chronic psychotropic medication. In terms of his Parkinson's disease, the patient a combination of amantadine and Sinemet. The patient is also on Seroquel 25 mg at bedtime and 12.5 g on a when necessary basis. Depakote is for seizure activity and no seizure activity has been noted. He does have resting tremor and significant cogwheel rigidity. Ativan is being utilized on and off as needed. His last dose of Ativan was given to him earlier this morning, around 1 mg Objective - Vital Signs Vital signs: Vital Signs Temp 98.8 F 01/23/17 06:00 Pulse 107 H 01/23/17 08:02 Resp 18 01/23/17 07:00 BP 116/69 01/23/17 07:00 Pulse Ox 100 01/23/17 07:47 Intake & Output 01/22/17 01/23/17 01/23/17 18:59 06:59 18:59 Intake Total 375 712.5 50 Output Total 260 645 135 Balance 115 67.5 -85 Weight 62.6 kg 67.6 kg Intake: IV 325 612.5 50 Piperacillin-Tazobactam 3 62.5 .375 gm In Dextrose/Water 1 50ml.bag @ 12.5 mls/hr IVPB Q8HR VALARIE Rx#: [id number] Sodium Chloride 0.9% 1, 325 550 50 000 ml @ 50 mls/hr IV . Q20H VALARIE Rx#:[id number] Intake, IV Titration 50 100 Amount ACETAMINOPHEN IV (For NPO 100 ) 1,000 mg In Empty Bag 1 bag @ 400 mls/hr IVPB Q6HR PRN Rx#:[id number] Piperacillin-Tazobactam 3 50 .375 gm In Dextrose/Water 1 50ml.bag @ 12.5 mls/hr IVPB Q8HR VALARIE Rx#: [id number] Output: Gastric Drainage 100 Urine 260 645 35 Other: Voiding Method Indwelling Catheter Indwelling Catheter # Bowel Movements 0 1 - Exam Patient is cachectic, weak, seems somewhat malnourished yet, comfortable and tolerating a full face BiPAP mask. He is asynchronous with a BiPAP machine. No labored breathing at this point. He has been given Ativan earlier today and he is quite sedated at this point. He has some resting tremors. Neck is supple and there is no JVDs no goiter or neck masses. The patient is an NG tube in place and the total amount of output has been may be 100 mL's since it was was inserted yesterday. No JVDs no goiter or neck masses. Lungs sounds are equal and symmetrical and there is no wheezes or rhonchi any crackles.Cardiac exam revealed the PMI to be normally situated and sized. The rhythm was regular and no extrasystoles were noted during several minutes of auscultation. The first and second heart sounds were normal and physiologic splitting of the second heart sound was noted. There were no murmurs, rubs, clicks, or gallops.Abdominal exam revealed normal bowel sounds. The abdomen was soft, non-tender, and without masses, organomegaly, or appreciable enlargement of the abdominal aorta.Examination of the extremities revealed easily palpable radial, femoral and pedal pulses. There was no cyanosis, clubbing or edema. Neurologic exam is consistent with his history of Parkinson's disease. - Labs CBC & Chem 7: 01/23/17 04:27 01/23/17 04:27 Labs: Abnormal Lab Results - Last 24 Hours (Table) 01/22/17 01/22/17 01/22/17 Range/Units 09:02 09:02 09:02 WBC (3.8-10.6) k/uL RBC (4.30-5.90) m/uL Hct (39.0-53.0) % Neutrophils # (Manual) (1.3-7.7) k/uL Sodium 136 L (137-145) mmol/L Chloride 93 L (98-107) mmol/L Carbon Dioxide 21 L (22-30) mmol/L BUN 45 H (9-20) mg/dL Glucose (74-99) mg/dL POC Glucose (mg/dL) (75-99) mg/dL Plasma Lactic Acid Giovanni 2.2 H* (0.7-2.0) mmol/L Total Creatine Kinase 906 H (55-170) U/L CK-MB (CK-2) 8.2 H* (0.0-2.4) ng/mL Urine Protein (Negative) Urine Ketones (Negative) Urine Blood (Negative) Ur Leukocyte Esterase (Negative) Urine RBC (0-5) /hpf Urine WBC (0-5) /hpf Urine Bacteria (None) /hpf Hyaline Casts (0-2) /lpf Urine Mucus (None) /hpf 01/22/17 01/22/17 01/22/17 Range/Units 09:14 12:07 12:39 WBC (3.8-10.6) k/uL RBC (4.30-5.90) m/uL Hct (39.0-53.0) % Neutrophils # (Manual) (1.3-7.7) k/uL Sodium (137-145) mmol/L Chloride (98-107) mmol/L Carbon Dioxide (22-30) mmol/L BUN (9-20) mg/dL Glucose (74-99) mg/dL POC Glucose (mg/dL) 133 H 130 H (75-99) mg/dL Plasma Lactic Acid Giovanni (0.7-2.0) mmol/L Total Creatine Kinase (55-170) U/L CK-MB (CK-2) (0.0-2.4) ng/mL Urine Protein 1+ H (Negative) Urine Ketones 4+ H (Negative) Urine Blood Large H (Negative) Ur Leukocyte Esterase Large H (Negative) Urine RBC >182 H (0-5) /hpf Urine WBC 163 H (0-5) /hpf Urine Bacteria Rare H (None) /hpf Hyaline Casts 4 H (0-2) /lpf Urine Mucus Occasional H (None) /hpf 01/22/17 01/23/17 01/23/17 Range/Units 18:40 04:27 04:27 WBC 16.9 H (3.8-10.6) k/uL RBC 4.05 L (4.30-5.90) m/uL Hct 38.9 L (39.0-53.0) % Neutrophils # (Manual) 15.20 H (1.3-7.7) k/uL Sodium (137-145) mmol/L Chloride (98-107) mmol/L Carbon Dioxide (22-30) mmol/L BUN 40 H (9-20) mg/dL Glucose 156 H (74-99) mg/dL POC Glucose (mg/dL) 124 H (75-99) mg/dL Plasma Lactic Acid Giovanni (0.7-2.0) mmol/L Total Creatine Kinase (55-170) U/L CK-MB (CK-2) (0.0-2.4) ng/mL Urine Protein (Negative) Urine Ketones (Negative) Urine Blood (Negative) Ur Leukocyte Esterase (Negative) Urine RBC (0-5) /hpf Urine WBC (0-5) /hpf Urine Bacteria (None) /hpf Hyaline Casts (0-2) /lpf Urine Mucus (None) /hpf 01/23/17 Range/Units 07:26 WBC (3.8-10.6) k/uL RBC (4.30-5.90) m/uL Hct (39.0-53.0) % Neutrophils # (Manual) (1.3-7.7) k/uL Sodium (137-145) mmol/L Chloride (98-107) mmol/L Carbon Dioxide (22-30) mmol/L BUN (9-20) mg/dL Glucose (74-99) mg/dL POC Glucose (mg/dL) 144 H (75-99) mg/dL Plasma Lactic Acid Giovanni (0.7-2.0) mmol/L Total Creatine Kinase (55-170) U/L CK-MB (CK-2) (0.0-2.4) ng/mL Urine Protein (Negative) Urine Ketones (Negative) Urine Blood (Negative) Ur Leukocyte Esterase (Negative) Urine RBC (0-5) /hpf Urine WBC (0-5) /hpf Urine Bacteria (None) /hpf Hyaline Casts (0-2) /lpf Urine Mucus (None) /hpf Microbiology - Last 24 Hours (Table) 01/22/17 09:14 Urine Culture - Preliminary Urine,Catheterized Assessment and Plan Plan: Assessment 1 acute respiratory distress/acute hypoxic respiratory failure. The acute decompensation is most likely due to aspiration or mucous plug. The patient has symptomatic developed a right lower lobe pulmonary infiltrate suggestive an underlying hospital-acquired jail acquired or aspiration acquired pneumonia. On 01/23/2017 the patient remains on a BiPAP. His breathing is more stable as compared to yesterday. The patient had a subsequent chest x-ray from today shows no evidence of pneumonia. We'll try this patient on OptiFlow, high flow oxygen and discontinue the BiPAP if possible. 2 acute hypoxic respiratory failure secondary to above 3 acute urine checked infection , awaiting cultures. Suspect underlying sepsis secondary to a urine checked infection. The patient is currently on IV Zosyn. No pressors. 4 sepsis secondary to above 5 advanced Parkinson disease with significant movement disorder, rigidity and impairment of the cognitive functions 6 malnutrition, we'll start enteral feeding for nutritional support 7 marked impairment in the performance and functional status 8 jail resident 9 coronary artery disease previous coronary artery stenting 10 questionable seizure disorder 11 BPH with previous history of urine checked infections Plan The patient will moved to the intensive care unit. DNR/DNI CODE STATUS. The patient was started on tube feeds at a low rate. The patient will be kept on IV Zosyn. We'll switch this patient to OptiFlow. Maintain a saturation above 92%. Discontinue the BiPAP for now. Continue IV Zosyn. Continue IV fluids and increased the rate of 200 mL an hour. DVT and GI prophylaxis. Aspiration precautions. Outpatient medication of been all resumed through the NG tube. We 'll continue to follow.
[2017-01-23] MEDS ORDERED: LEVOFLOXACIN 750MG-D5W PMX 750 MG in DEXTROSE/WATER 1 150ML.BAG IVPB SCH (10:00)
[2017-01-23] MEDS: METOPROLOL TARTRATE 12.5 MG TAB PO SCH ×2 (11:15→16:26)
[2017-01-23] MEDS: TAMSULOSIN 0.4 MG CAP.ER.24H PO SCH (11:16)
[2017-01-23] MEDS: CARBIDOPA-LEVODOPA 25-100 MG 1 EACH TAB PO SCH (11:16)
[2017-01-23] MEDS: MAGNESIUM OXIDE 400 MG TAB PO SCH ×2 (11:17→16:25)
[2017-01-23] MEDS: AMANTADINE HCL 100 MG CAP PO SCH ×2 (11:19→16:25)
[2017-01-23 13:08] VITALS: TEMP 98.4
[2017-01-23] MEDS ORDERED: CARBIDOPA-LEVODOPA 25-100 MG 1 EACH TAB PO SCH (16:00)
[2017-01-23] MEDS: SODIUM CHLORIDE 0.9% 1,000 ML IV SCH ×2 (16:20→16:24)
[2017-01-23 17:45] VITALS: BP 81/47; PULSE 70; RESP 10
--- NOTE | 2017-01-24 18:28 | DS ---
DISCHARGE SUMMARY FINAL DIAGNOSES: 1. Right lower lobe pneumonia, suspect gram-negative organism causing sepsis-like picture. 2. Acute delirium/metabolic encephalopathy from pneumonia, present on admission. 3. Idiopathic Parkinson disease. 4. Coronary artery disease and prior history of stent. 5. Essential hypertension. 6. Hyperlipidemia. 7. Seizure disorder. 8. Bipolar disorder. 9. Primary osteoarthritis. 10.Alzheimer's dementia, late onset type. 11.Acute hypoxic respiratory failure from pneumonia, present on admission. HOSPITAL COURSE: This patient with multiple problems presented with a sepsis-like picture, continued to deteriorate, required BiPAP, high-flow oxygen. The patient was given antibiotics including Levaquin and Zosyn. I saw the patient earlier today. Had an NG tube in for his medications. Continued to deteriorate. Eventually the patient declined rapidly and . CONSULTATIONS: Dr. Herrera from Pulmonary. Earlier today the patient's Parkinson's was uncontrolled with increasing tremors. Lungs had some crackles. MMODL / IJN: [id number] /
== END 2017-01-23 18:00 | disposition expired | DRG 871 ==
LOC: EC 08:46 → 4MS4W 10:58 → 6ICU 12:20
PROVIDERS: ADMIT Hospitalist; ATTEND Hospitalist
DX: A41.9 Sepsis, unspecified organism (principal); J15.6 Pneumonia due to other Gram-negative bacteria; J96.01 Acute respiratory failure with hypoxia; G93.41 Metabolic encephalopathy; E46 Unspecified protein-calorie malnutrition; N39.0 Urinary tract infection, site not specified; G20 Parkinson's disease; G30.1 Alzheimer's disease with late onset; R13.10 Dysphagia, unspecified; F02.80 Dementia in other diseases classified elsewhere, unspecified severity, without behavioral disturbance, psychotic disturbance, mood disturbance, and anxiety; Z66 Do not resuscitate; G40.909 Epilepsy, unspecified, not intractable, without status epilepticus; T17.990A Other foreign object in respiratory tract, part unspecified in causing asphyxiation, initial encounter; I25.10 Atherosclerotic heart disease of native coronary artery without angina pectoris; I10 Essential (primary) hypertension; E78.5 Hyperlipidemia, unspecified; F31.9 Bipolar disorder, unspecified; M19.91 Primary osteoarthritis, unspecified site; F41.9 Anxiety disorder, unspecified; I25.2 Old myocardial infarction; N40.0 Benign prostatic hyperplasia without lower urinary tract symptoms; Z79.82 Long term (current) use of aspirin; Z79.899 Other long term (current) drug therapy; Z90.49 Acquired absence of other specified parts of digestive tract; Z87.891 Personal history of nicotine dependence; Z95.5 Presence of coronary angioplasty implant and graft; Z96.641 Presence of right artificial hip joint; Z86.73 Personal history of transient ischemic attack (TIA), and cerebral infarction without residual deficits
CPT/HCPCS: 36415; 71010; 71020; 80048; 80053; 81001; 82550; 82553; 83605; 83735; 84100; 84484; 85025; 85610; 85730; 87040; 87077; 87086; 87186; 93005; 94640; 94660; 96361; 96365; 96367; 96375; 99291